=== PATIENT | female | born 1955 | race Caucasian/White ===

== ENCOUNTER 2021-08-10 18:55 | Inpatient (IN) | payer MEDICARE, BC ==
[~2021-08-10] VITALS: Ht 182.9 cm; Wt 74.8 kg
[2021-08-10 19:00] VITALS: BP 134/71
[2021-08-10 23:00] VITALS: BP 120/66
[2021-08-11] VITALS (15 sets, daily range): BP systolic 117–142; BP diastolic 66–81
[2021-08-11] MEDS ORDERED: MULT-735 PO (00:04)
[2021-08-11] MEDS ORDERED: TRAZ-118 PO (00:04)
[2021-08-11] MEDS ORDERED: FLUO20CA20 PO (00:04)
[2021-08-11] MEDS ORDERED: HYDR-2145 PO (00:04)
[2021-08-11] MEDS ORDERED: MECO10005 PO (00:04)
[2021-08-11] MEDS ORDERED: AMLO-187 PO (00:04)
[2021-08-11] MEDS ORDERED: LACT1CAP37 PO (00:04)
[2021-08-11] MEDS ORDERED: LOSA-73 PO (00:04)
[2021-08-11] MEDS ORDERED: OMEG1CAP6 PO (00:04)
[2021-08-11] MEDS ORDERED: CA/D1TAB PO (00:04)
[2021-08-11] MEDS: PIPERACILLIN/TAZOBACTAM 3.375 GM in IV NORMAL SALINE 50ML 50 ML IV SCH ×4 (00:53→17:46)
[2021-08-11] MEDS: IV NORMAL SALINE 1000ML BAG 1,000 ML IV SCH ×2 (00:53→12:15)
[2021-08-11] MEDS: fentaNYL PF VIAL 100 MCG/2 ML VIAL IVP PRN ×3 (03:29→17:44)
--- NOTE | 2021-08-11 07:02 | PDOC1 ---
History and Physical Date of Admission Date of Admission DATE: 08/11/21 TIME: 07:02 Source Source: Chart review, Patient History of Present Illness History of Present Illness Ms Pal is a 65yo F w/ PMHx HTN who presented to [facility] with labored emergency department complaining of right-sided lower abdominal pain. Pain started 2 weeks prior to presentation pain has been colicky comes and goes but her symptoms changed on 08/10/2021 is having a sharp pain with a bowel movement with 10 out of 10 in her right lower quadrant. She is felt more bloated and distended since then. She has had loose bowel movements. She also has had night sweats and subjective fevers has not checked her temperature. Denies chest pain and shortness of breath. Blood pressure on initial presentation 173/92 temp 98.4 F pulse 70 respirations 16/min SPO2 95% on room air initial labs NA 136, K3.8, BUN 7, CR 0.7, glucose 113, LFTs within normal laboratory results, WBC 11, Hb 16.5, platelets 373, urinalysis negative for nitrates negative for leukocyte esterase a COVID-19 PCR returned negative lactic acid 1.3 CT abdomen pelvis was performed in radiology read showed acute sigmoid diverticulitis with small pericolonic abscess no evidence of bowel perforation. An indeterminate 1.4 x 0.9 cm right lower lobe pulmonary nodule. 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 The ED contacted multiple hospitals [facility] had no beds available and was transferred to [facility] for further care. Past Medical History Cardiovascular: HTN Psych: Anxiety, Depression Social History Smoke: 1 pack per day ALCOHOL: social Drugs: Marijuana Current Medications Current Medications Current Medications Fentanyl Citrate (Fentanyl 2ml Vial) 50 mcg PRN Q3HRS PRN IVP SEVERE PAIN 7-10 Last administered on 08/11/21at 03:29; Start 08/10/21 at 22:45 Piperacillin Sod/ Tazobactam Sod 3.375 gm/Sodium Chloride 50 ml @ 100 mls/hr Q6HRS IV Last administered on 08/11/21at 06:10; Start 08/11/21 at 00:00 Sodium Chloride 1,000 ml @ 80 mls/hr [id number] IV Last administered on 08/11/21at 00:53; Start 08/10/21 at 22:45 Active Scripts Active Reported Fish Oil 1,000 Mg Capsule ([place]-3 Fatty Acids/Fish Oil) 1 Each Capsule 1 Each PO DAILY B12 Active (Mecobalamin) 1,000 Mcg Tab.chew 1,000 Mcg PO DAILY Probiotic (Lactobacillus Combo No.10) 1 Each Capsule 1 Each PO DAILY Caltrate 600+D Plus Tablet (Ca/D3/Mag#11/Zinc/Performance Improvement Consultant/Melecio/Bor) 1 Each Tablet 1 Each PO DAILY One-Daily Multi-Vitamin (Multivitamin) 1 Each Tablet 1 Each PO DAILY Trazodone Hcl 50 Mg Tablet 50 Mg PO HS Cozaar (Losartan Potassium) 50 Mg Tablet 50 Mg PO DAILY Hydrochlorothiazide Tablet (Hydrochlorothiazide) 25 Mg Tablet 12.5 Mg PO DAILY Fluoxetine Hcl 20 Mg Capsule 20 Mg PO DAILY Amlodipine Besylate 10 Mg Tablet 10 Mg PO DAILY Allergies Allergies: Coded Allergies: Sulfa (Sulfonamide Antibiotics) (Verified Allergy, Intermediate, 08/10/21) Vitals Vitals Vital Signs Date Time Temp Pulse Resp B/P (MAP) Pulse Ox O2 Delivery O2 Flow Rate FiO2 08/11/21 03:00 98.6 73 18 118/72 (87) 94 Room Air 98.[address] abdomen pelvis with contrast: Lower chest: Indeterminate 1.4 x 0.9 cm right lower lobe subpleural nodule bibasilar atelectasis no pleural or pericardial effusion. Abdomen: Liver: The liver enhances homogenously without focal mass Spleen: Normal spleen Pancreas: The pancreas enhances homogenously without focal mass ductal dilation or peripancreatic inflammatory changes Gallbladder and biliary: Normal gallbladder without radiopaque stones normal caliber biliary ducts. Adrenal glands: Normal adrenal glands Kidneys and ureters: With incidental left renal cyst measures up to 1.9 cm. 0.9 cm left inferior renal cyst demonstrates a thin internal septation with peripheral enhancement indicating a Bosniak type II F renal cyst no hydronephrosis no opaque urinary calculi GI tract: Thickening of the distal esophagus may relate to esophagitis. Stomach is decompressed and poorly evaluated. Small bowel: Of normal caliber. Marked inflammation about the proximal sigmoid colon, there are several prominent diverticula. There is marked bowel wall thickening in this region with adjacent free fluid and a 3.3 x 2.5 x 2.1 cm pericolonic fluid collection no evidence of perforation of the appendix is the visualized with certainty however there are no secondary signs of acute appendicitis. Vascular structures: Normal caliber abdominal aorta. Mild to moderate aortoiliac atherosclerosis. Celiac artery, SMA, bilateral renal arteries, and DAVID are patent. Portal mesenteric venous structures are patent. Lymph nodes: No lymphadenopathy in the abdomen or pelvis. Pelvis: Genitourinary system: Mild wall thickening of the left lateral bladder dome may be reactive given proximity to hypoexpansion. Sigmoid diverticulitis. Normal size uterus and ovaries. Skeletal structures and soft tissues: No acute fracture. No aggressive lytic or blastic osseous lesions. Moderate degenerative changes of both hips, left greater than right. Mild degenerative changes at the sacroiliac joints and pubic symphysis. Mild to moderate degenerative changes of the spine. Impression" 1.acute sigmoid diverticulitis with small pericolonic abscess no evidence of bowel perforation. 2. An indeterminate 1.4 x 0.9 cm right lower lobe pulmonary nodule. 3. 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 VTE Prophylaxis Ordered VTE Prophylaxis Devices: No VTE Pharmacological Prophylaxi: Yes Assessment/Plan Assessment/Plan A/P: Perforated diverticulitis - IV zosyn, general surgery, IR consulted, IV pain control. NPO Intractable abdominal pain - due to perforated diverticulitis. IV fentanyl. Consult general surgery Abdominal abscess - IR consulted for drain. Will cloud over images. Zosyn q6 hrs Smoker - counseled on cessation HTN - cont home meds. PRN hydralazine IV Depression - NPO, will cont meds when taking PO 1.4 x 0.9 cm right lower lobe pulmonary nodule - needs f/u in 6 months Bosniak type II F left inferior renal cyst - will need outpatient monitoring Hypokalemia - replace IV Moderate protein calorie malnutrition - due to diverticulitis FEN - NPO PPX - lovenox after procedure FULL CODE Dispo - inpatient Justifications for Admission Other Justification AD MEIER MD Aug 11, 2021 07:02
[2021-08-11] MEDS ORDERED: ONDANSETRON PF 4 MG/2 ML VIAL. IVP PRN (07:15)
[2021-08-11 07:18] LABS: BASO % 1 % (0-3); EOS # 0.1 x10^3/uL (0.0-0.7); EOS % 2 % (0-3); HEMATOCRIT 46.9 % (36.0-47.0); HEMOGLOBIN 15.9 g/dL (12.0-15.5); LYMPH # 1.3 x10^3/uL (1.0-4.8); LYMPH % 16 % (24-48); MEAN CORPUSCULAR HEMOGLOBIN 31 pg (25-35); MEAN CORPUSCULAR HGB CONC 34 g/dL (31-37); MEAN CORPUSCULAR VOLUME 91 fL (79-100); MONO # 0.6 x10^3/uL (0.0-1.1); MONO % 7 % (0-9); NEUT % 74 % (31-73); PLATELET COUNT 404 x10^3/uL (140-400); RED BLOOD COUNT 5.14 x10^6/uL (3.50-5.40); RED CELL DISTRIBUTION WIDTH 14.4 % (11.5-14.5); WHITE BLOOD COUNT 8.1 x10^3/uL (4.0-11.0)
[2021-08-11 07:22] LABS: ALBUMIN 2.6 g/dL (3.4-5.0); ALBUMIN/GLOBULIN RATIO 0.7 (1.0-1.7); CALCIUM 8.9 mg/dL (8.5-10.1); CREATININE 0.7 mg/dL (0.6-1.0); GFR 83.7; POTASSIUM 3.3 mmol/L (3.5-5.1); TOTAL BILIRUBIN 0.5 mg/dL (0.2-1.0); TOTAL PROTEIN 6.4 g/dL (6.4-8.2)
[2021-08-11] MEDS ORDERED: hydrALAZINE 20 MG/ML VIAL. IVP PRN (08:45)
[2021-08-11 10:26] LABS: PROTHROMBIN TIME PATIENT 13.6 SEC (11.7-14.0)
--- NOTE | 2021-08-11 10:53 | NUR ---
SW following. Discussed with RN, pt from home alone, room air, NPO. Surgery following. Imaging to determine if abscess needs draining. RN advised no SW needs at this time. SW will continue to follow.
[2021-08-11] MEDS ORDERED: LIDOCAINE WITH 8.4% SOD BICARB 3 ML DISP.SYRIN. ONE (13:41)
[2021-08-11] MEDS ORDERED: MIDAZOLAM HCL/PF 2 MG/2 ML VIAL. ONE (13:52)
[2021-08-11] MEDS ORDERED: fentaNYL PF VIAL 100 MCG/2 ML VIAL ONE (13:53)
[2021-08-11] MEDS ORDERED: fentaNYL PF VIAL 100 MCG/2 ML VIAL IV ONE (14:00)
[2021-08-11] MEDS ORDERED: LIDOCAINE WITH 8.4% SOD BICARB 3 ML DISP.SYRIN. IJ ONE (14:00)
[2021-08-11] MEDS ORDERED: MIDAZOLAM HCL/PF 2 MG/2 ML VIAL. IV ONE (14:00)
[2021-08-11] MEDS ORDERED: IOHEXOL 300 MG/ML 100ML VIAL. ONE (14:27)
--- NOTE | 2021-08-11 14:55 | PDOC ---
MODERATE SEDATION ASSESSMENT RISKS/ALTERNATIVES Risks/Alternatives Risks and alternatives of this type of sedation and procedure discussed with: RISK/ALTERNATIVES: Patient H & P ON CHART H & P H & P on chart and reviewed for co-morbid conditions and appropriate labs. H&P ON CHART: Yes STATUS PREG STATUS ASSESSED: Yes MEDS/ALLERGIES REVIEWED Meds/Allergies Reviewed Medications and Allergies including time and route of recently administered narcotics and sedatives. MEDS/ALLERGIES REVIEWED: Yes ASA RATING ASA RATING: II AIRWAY ASSESSMENT Airway Assessment Airway patency, oral function limitations, presence of caps, crowns, dentures, partials, and ability to extend neck assessed. AIRWAY ASSESSMENT: Yes MALLAMPATI SCORE MALLAMPATI SCORE: II PRE-SEDATION ASSESSMENT PRE-SEDATION ASSESSMENT: Yes LOU BANKS MD Aug 11, 2021 14:55
--- NOTE | 2021-08-11 14:56 | PDOC ---
BRIEF OPERATIVE NOTE Pre-Op Diagnosis diverticulitis Post-Op Diagnosis same Procedure Performed CT aspiration of pelvic abscess Surgeon Shonna EBL minimal Anesthesia Type: Conscious Sedation Specimens Obtained 3cc pus and blood Findings small sigmoid abscess improved from prior outside CT scan and now too small to accommodate a drain. Aspiration was performed yielding 3cc pus and resulting in complete involution of the residual abscess. Complications none LOU BANKS MD Aug 11, 2021 14:56
[2021-08-11] MEDS ORDERED: IOHEXOL 300 MG/ML 100ML VIAL. IJ ONE (15:00)
[2021-08-11] MEDS ORDERED: CONTRAST GIVEN. MC PRN (15:00)
--- NOTE | 2021-08-11 15:09 | RAD ---
Procedure: CT-guided pelvic abscess aspiration Clinical Indication: Adult female with pelvic abscess, sigmoid diverticulitis Sedation: Conscious sedation using a combination of Versed and fentanyl was provided for 10 minutes, including continuous monitoring of the patients heart rate, rhythm, blood pressure, oxygen saturation and level of arousability by a trained independent observer. CT Exposure: One or more of the following individualized dose reduction techniques were utilized for this examination: 1. Automated exposure control 2. Adjustment of the mA and/or kV according to antonieta ent size 3. Use of iterative reconstruction technique Contrast: None Sterility: The procedure was performed in its entirety using appropriate elements of sterile techniqu e. Consent: The procedure was explained in its entirety to the patient or the patients designated repres entative by a member of the treatment team, including a discussion of the risks, benefits and commonl y accepted alternatives to the procedure, as well as the expected consequences of not performing the procedure. Discussion of the risks included, but was not limited to, those that are most frequent an d those that are rare but possibly severe or life-threatening, as well as the possibility of unforese en complications. Time Out: Immediately prior to initiation a procedural pause was conducted in the presence of the mem bers of the treatment team to verify correct patient identity, correct procedure, correct side if vianey licable, correct patient position, availability of specialized equipment, review of patients allergie s, and assessment of current level of consciousness and arousability. Technique and Findings: Following informed consent, the patient was prepped and draped in the usual s terile fashion. Preliminary CT of the area of interest was performed. The previously seen abscess is less conspicuous today, consequently IV contrast was administered and scan was once again performed. There is a persistent small 2 cm abscess in the anterior wall of the sigmoid colon, which is smaller than seen on the previous outside study. 1 percent lidocaine was used to achieve local anesthesia. A small dermatotomy was made. An 18-gauge Seldinger needle was advanced into this fluid pocket and 3 cc of blood and pus was aspirated and sent for Charan biologic analysis. Follow-up CT scan demonstrate d complete involution of the abscess cavity. Hemostasis was readily achieved with manual compression following removal of the needle. Complications: No immediate Impression: 1. CT-guided aspiration of a pelvic abscess as described. This is improving compared to the prior sca n, and is presently too small to accommodate a drain. Aspiration resulted in complete involution. Electronically signed by: Frank Kilpatrick MD (08/11/2021 3:07 PM) [id number]
--- NOTE | 2021-08-11 16:47 | PDOC2 ---
CONSULT Date of Consult Date of Consult DATE: 08/11/21 TIME: 16:45 Reason for Consult Reason for Consult: Abdominal pain Referring Physician Referring Physician: Dianna Identification/Chief Complaint Chief Complaint Abdominal pain Source Source: Chart review, Patient History of Present Illness Reason for Visit: 65-year-old female had abdominal pain was evaluated [facility] urgent care CT scan was done which showed diverticulitis of the sigmoid colon with small abscess she was mated to the hospital IR drained abscess only 3 cc of purulent material. Currently she is resting comfortably in bed states she is feeling much better Past Medical History Cardiovascular: HTN Psych: Anxiety, Depression Social History 1 pack per day ALCOHOL: social Drugs: Marijuana Current Medications Current Medications Current Medications Fentanyl Citrate (Fentanyl 2ml Vial) 50 mcg PRN Q3HRS PRN IVP SEVERE PAIN 7-10 Last administered on 08/11/21at 12:11; Start 08/10/21 at 22:45 Piperacillin Sod/ Tazobactam Sod 3.375 gm/Sodium Chloride 50 ml @ 100 mls/hr Q6HRS IV Last administered on 08/11/21at 12:13; Start 08/11/21 at 00:00 Sodium Chloride 1,000 ml @ 80 mls/hr [id number] IV Last administered on 08/11/21at 12:15; Start 08/10/21 at 22:45 Ondansetron HCl (Zofran) 4 mg PRN Q4HRS PRN IVP NAUSEA/VOMITING; Start 08/11/21 at 07:15 Hydralazine HCl (Apresoline Inj) 10 mg PRN Q4HRS PRN IVP ELEVATED BP, SEE COMMENTS; Start 08/11/21 at 08:45 Lidocaine HCl (Buffered Lidocaine 1%) 3 ml STK-MED ONCE .ROUTE ; Start 08/11/21 at 13:41; Stop 08/11/21 at 13:41; Status DC Midazolam HCl (Versed) 2 mg STK-MED ONCE .ROUTE ; Start 08/11/21 at 13:52; Stop 08/11/21 at 13:53; Status DC Fentanyl Citrate (Fentanyl 2ml Vial) 100 mcg STK-MED ONCE .ROUTE ; Start 08/11/21 at 13:53; Stop 08/11/21 at 13:53; Status DC Lidocaine HCl (Buffered Lidocaine 1%) 3 ml 1X ONCE IJ Last administered on 08/11/21at 14:47; Start 08/11/21 at 14:00; Stop 08/11/21 at 14:04; Status DC Midazolam HCl (Versed) 2 mg 1X ONCE IV Last administered on 08/11/21at 14:46; Start 08/11/21 at 14:00; Stop 08/11/21 at 14:04; Status DC Fentanyl Citrate (Fentanyl 2ml Vial) 100 mcg 1X ONCE IV Last administered on 08/11/21at 14:46; Start 08/11/21 at 14:00; Stop 08/11/21 at 14:04; Status DC Potassium Chloride/Water 100 ml @ 100 mls/hr Q1H IV ; Start 08/11/21 at 14:00; Stop 08/11/21 at 15:59; Status DC Iohexol (Omnipaque 300 Mg/ml) 100 ml STK-MED ONCE .ROUTE ; Start 08/11/21 at 14:27; Stop 08/11/21 at 14:27; Status DC Iohexol (Omnipaque 300 Mg/ml) 100 ml 1X ONCE IJ Last administered on 08/11/21at 14:55; Start 08/11/21 at 15:00; Stop 08/11/21 at 15:01; Status DC Info (CONTRAST GIVEN -- Rx MONITORING) 1 each PRN DAILY PRN MC SEE COMMENTS; Start 08/11/21 at 15:00; Stop 08/13/21 at 14:59 Active Scripts Active Reported Fish Oil 1,000 Mg Capsule ([place]-3 Fatty Acids/Fish Oil) 1 Each Capsule 1 Each PO DAILY B12 Active (Mecobalamin) 1,000 Mcg Tab.chew 1,000 Mcg PO DAILY Probiotic (Lactobacillus Combo No.10) 1 Each Capsule 1 Each PO DAILY Caltrate 600+D Plus Tablet (Ca/D3/Mag#11/Zinc/Regional Sales Leader/Melecio/Bor) 1 Each Tablet 1 Each PO DAILY One-Daily Multi-Vitamin (Multivitamin) 1 Each Tablet 1 Each PO DAILY Trazodone Hcl 50 Mg Tablet 50 Mg PO HS Cozaar (Losartan Potassium) 50 Mg Tablet 50 Mg PO DAILY Hydrochlorothiazide Tablet (Hydrochlorothiazide) 25 Mg Tablet 12.5 Mg PO DAILY Fluoxetine Hcl 20 Mg Capsule 20 Mg PO DAILY Amlodipine Besylate 10 Mg Tablet 10 Mg PO DAILY Allergies Allergies: Coded Allergies: Sulfa (Sulfonamide Antibiotics) (Verified Allergy, Intermediate, 08/10/21) ROS Gastrointestinal: Yes Abdominal Pain Physical Exam General: Alert, Oriented X3, Cooperative, mild distress HEENT: Atraumatic, EOMI Lungs: Clear to auscultation, Normal air movement Heart: Regular rate, No murmurs Abdomen: Normal bowel sounds, Soft, Other (Tender to palpation left lower quadrant) Extremities: No edema Skin: No significant lesion Neuro: Normal speech Psych/Mental Status: Mental status NL Vitals VITALS Vital Signs Date Time Temp Pulse Resp B/P (MAP) Pulse Ox O2 Delivery O2 Flow Rate FiO2 08/11/21 16:31 132/81 (98) Room Air 08/11/21 16:00 98.0 78 18 97 98.0 08/11/21 14:56 2.0 Labs Labs Laboratory Tests Test 08/11/21 06:05 08/11/21 09:50 White Blood Count 8.1 x10^3/uL (4.0-11.0) Red Blood Count 5.14 x10^6/uL (3.50-5.40) Hemoglobin 15.9 g/dL (12.0-15.5) Hematocrit 46.9 % (36.0-47.0) Mean Corpuscular Volume 91 fL (79-100) Mean Corpuscular Hemoglobin 31 pg (25-35) Mean Corpuscular Hemoglobin Concent 34 g/dL (31-37) Red Cell Distribution Width 14.4 % (11.5-14.5) Platelet Count 404 x10^3/uL (140-400) Neutrophils (%) (Auto) 74 % (31-73) Lymphocytes (%) (Auto) 16 % (24-48) Monocytes (%) (Auto) 7 % (0-9) Eosinophils (%) (Auto) 2 % (0-3) Basophils (%) (Auto) 1 % (0-3) Neutrophils # (Auto) 6.0 x10^3/uL (1.8-7.7) Lymphocytes # (Auto) 1.3 x10^3/uL (1.0-4.8) Monocytes # (Auto) 0.6 x10^3/uL (0.0-1.1) Eosinophils # (Auto) 0.1 x10^3/uL (0.0-0.7) Basophils # (Auto) 0.0 x10^3/uL (0.0-0.2) Sodium Level 141 mmol/L (136-145) Potassium Level 3.3 mmol/L (3.5-5.1) Chloride Level 105 mmol/L (98-107) Carbon Dioxide Level 31 mmol/L (21-32) Anion Gap 5 (6-14) Blood Urea Nitrogen 7 mg/dL (7-20) Creatinine 0.7 mg/dL (0.6-1.0) Estimated GFR (Cockcroft-Gault) 83.7 BUN/Creatinine Ratio 10 (6-20) Glucose Level 81 mg/dL (70-99) Calcium Level 8.9 mg/dL (8.5-10.1) Magnesium Level 2.1 mg/dL (1.8-2.4) Total Bilirubin 0.5 mg/dL (0.2-1.0) Aspartate Amino Transf (AST/SGOT) 11 U/L (15-37) Alanine Aminotransferase (ALT/SGPT) 20 U/L (14-59) Alkaline Phosphatase 63 U/L (46-116) Total Protein 6.4 g/dL (6.4-8.2) Albumin 2.6 g/dL (3.4-5.0) Albumin/Globulin Ratio 0.7 (1.0-1.7) Prothrombin Time 13.6 SEC (11.7-14.0) Prothromb Time International Ratio 1.0 (0.8-1.1) Laboratory Tests Test 08/11/21 06:05 08/11/21 09:50 White Blood Count 8.1 x10^3/uL (4.0-11.0) Red Blood Count 5.14 x10^6/uL (3.50-5.40) Hemoglobin 15.9 g/dL (12.0-15.5) Hematocrit 46.9 % (36.0-47.0) Mean Corpuscular Volume 91 fL (79-100) Mean Corpuscular Hemoglobin 31 pg (25-35) Mean Corpuscular Hemoglobin Concent 34 g/dL (31-37) Red Cell Distribution Width 14.4 % (11.5-14.5) Platelet Count 404 x10^3/uL (140-400) Neutrophils (%) (Auto) 74 % (31-73) Lymphocytes (%) (Auto) 16 % (24-48) Monocytes (%) (Auto) 7 % (0-9) Eosinophils (%) (Auto) 2 % (0-3) Basophils (%) (Auto) 1 % (0-3) Neutrophils # (Auto) 6.0 x10^3/uL (1.8-7.7) Lymphocytes # (Auto) 1.3 x10^3/uL (1.0-4.8) Monocytes # (Auto) 0.6 x10^3/uL (0.0-1.1) Eosinophils # (Auto) 0.1 x10^3/uL (0.0-0.7) Basophils # (Auto) 0.0 x10^3/uL (0.0-0.2) Sodium Level 141 mmol/L (136-145) Potassium Level 3.3 mmol/L (3.5-5.1) Chloride Level 105 mmol/L (98-107) Carbon Dioxide Level 31 mmol/L (21-32) Anion Gap 5 (6-14) Blood Urea Nitrogen 7 mg/dL (7-20) Creatinine 0.7 mg/dL (0.6-1.0) Estimated GFR (Cockcroft-Gault) 83.7 BUN/Creatinine Ratio 10 (6-20) Glucose Level 81 mg/dL (70-99) Calcium Level 8.9 mg/dL (8.5-10.1) Magnesium Level 2.1 mg/dL (1.8-2.4) Total Bilirubin 0.5 mg/dL (0.2-1.0) Aspartate Amino Transf (AST/SGOT) 11 U/L (15-37) Alanine Aminotransferase (ALT/SGPT) 20 U/L (14-59) Alkaline Phosphatase 63 U/L (46-116) Total Protein 6.4 g/dL (6.4-8.2) Albumin 2.6 g/dL (3.4-5.0) Albumin/Globulin Ratio 0.7 (1.0-1.7) Prothrombin Time 13.6 SEC (11.7-14.0) Prothromb Time International Ratio 1.0 (0.8-1.1) Assessment/Plan Assessment/Plan Diverticulitis status post IR drainage of abscess Agree with bowel rest IV antibiotics hydration We will monitor BHAVIK DA SILVA MD Aug 11, 2021 16:47
[2021-08-11] MEDS: POTASSIUM CHLORIDE 10MEQ 100 ML IV SCH ×2 (17:39→19:00)
[2021-08-11] MEDS ORDERED: ZOLPIDEM 5 MG TABLET. PO PRN (20:00)
[2021-08-11] MEDS ORDERED: FAMOTIDINE 20 MG TABLET. PO PRN (20:00)
[2021-08-11] MEDS ORDERED: diphenhydrAMINE 50 MG/ML VIAL IVP PRN (20:15)
[2021-08-11] MEDS: FAMOTIDINE 20 MG/2 ML VIAL IVP PRN (21:29)
[2021-08-12] MEDS: PIPERACILLIN/TAZOBACTAM 3.375 GM in IV NORMAL SALINE 50ML 50 ML IV SCH ×4 (00:27→18:56)
[2021-08-12] MEDS: fentaNYL PF VIAL 100 MCG/2 ML VIAL IVP PRN (00:27)
[2021-08-12 03:00] VITALS: BP 119/69
[2021-08-12 07:10] VITALS: BP 136/76
[2021-08-12 07:16] LABS: BASO % 1 % (0-3); EOS # 0.1 x10^3/uL (0.0-0.7); EOS % 2 % (0-3); HEMATOCRIT 45.9 % (36.0-47.0); HEMOGLOBIN 15.3 g/dL (12.0-15.5); LYMPH # 1.1 x10^3/uL (1.0-4.8); LYMPH % 15 % (24-48); MEAN CORPUSCULAR HEMOGLOBIN 31 pg (25-35); MEAN CORPUSCULAR HGB CONC 33 g/dL (31-37); MEAN CORPUSCULAR VOLUME 92 fL (79-100); MONO # 0.4 x10^3/uL (0.0-1.1); MONO % 5 % (0-9); NEUT # 5.6 x10^3/uL (1.8-7.7); NEUT % 77 % (31-73); PLATELET COUNT 410 x10^3/uL (140-400); RED BLOOD COUNT 4.99 x10^6/uL (3.50-5.40); RED CELL DISTRIBUTION WIDTH 13.9 % (11.5-14.5); WHITE BLOOD COUNT 7.3 x10^3/uL (4.0-11.0)
[2021-08-12 07:50] LABS: ALBUMIN 2.6 g/dL (3.4-5.0); ALBUMIN/GLOBULIN RATIO 0.7 (1.0-1.7); CALCIUM 8.9 mg/dL (8.5-10.1); CREATININE 0.7 mg/dL (0.6-1.0); GFR 83.7; POTASSIUM 3.4 mmol/L (3.5-5.1); TOTAL BILIRUBIN 0.5 mg/dL (0.2-1.0); TOTAL PROTEIN 6.4 g/dL (6.4-8.2)
--- NOTE | 2021-08-12 08:16 | PDOC ---
[employer] PROGRESS NOTE Date of Service DOS: DATE: 08/12/21 TIME: 08:02 Chief Complaint Chief Complaint A/P: Perforated diverticulitis - IV zosyn, general surgery, IR consulted, IV pain control. NPO Intractable abdominal pain - due to perforated diverticulitis. IV fentanyl. Consult general surgery Abdominal abscess - IR consulted for drain. Will cloud over images. Zosyn q6 hrs Smoker - counseled on cessation HTN - cont home meds. PRN hydralazine IV Depression - NPO, will cont meds when taking PO 1.4 x 0.9 cm right lower lobe pulmonary nodule - needs f/u in 6 months Bosniak type II F left inferior renal cyst - will need outpatient monitoring Hypokalemia - replace IV Moderate protein calorie malnutrition - due to diverticulitis FEN - Clears PPX - lovenox after procedure FULL CODE Dispo - inpatient History of Present Illness History of Present Illness Ms Pal is a 65yo F w/ PMHx HTN who presented to [facility] with labored emergency department complaining of right-sided lower abdominal pain. Pain started 2 weeks prior to presentation pain has been colicky comes and goes but her symptoms changed on 08/10/2021 is having a sharp pain with a bowel movement with 10 out of 10 in her right lower quadrant. She is felt more bloated and distended since then. She has had loose bowel movements. She also has had night sweats and subjective fevers has not checked her temperature. Denies chest pain and shortness of breath. Blood pressure on initial presentation 173/92 temp 98.4 F pulse 70 respirations 16/min SPO2 95% on room air initial labs NA 136, K3.8, BUN 7, CR 0.7, glucose 113, LFTs within normal laboratory results, WBC 11, Hb 16.5, platelets 373, urinalysis negative for nitrates negative for leukocyte esterase a COVID-19 PCR returned negative lactic acid 1.3 CT abdomen pelvis was performed in radiology read showed acute sigmoid diverticulitis with small pericolonic abscess no evidence of bowel perforation. An indeterminate 1.4 x 0.9 cm right lower lobe pulmonary nodule. 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 The ED contacted multiple hospitals [facility] had no beds available and was transferred to [facility] for further care. 08/11: To IR for abscess drainage with 3 cc of purulent material removed and no need for placement of a drain after. Afebrile overnight. Potassium still low at 3.4 despite replacement. Her suprapubic and right lower quadrant pain are much improved but she still has left upper quadrant pain she thinks may be more related to her ribs. Will try Lidoderm patch and topical Voltaren. Diet was advanced to clears per general surgery. Vitals/I&O Vitals/I&O: Vital Signs Date Time Temp Pulse Resp B/P (MAP) Pulse Ox O2 Delivery O2 Flow Rate FiO2 08/12/21 07:10 98.6 82 16 136/76 (96) 94 Room Air 98.6 08/11/21 14:56 2.0 I & O 08/11/21 08/11/21 08/12/21 15:00 23:00 07:00 Intake Total 0 ml 0 ml Balance 0 ml 0 ml Physical Exam General: Alert, Oriented X3, Cooperative, mild distress Heart: Regular rate, No murmurs Abdomen: Normal bowel sounds, Soft, Other (Tender to palpation left lower quadrant) Extremities: No edema Skin: No significant lesion Labs Labs: Laboratory Tests Test 08/11/21 09:50 08/12/21 06:40 Prothrombin Time 13.6 SEC (11.7-14.0) Prothromb Time International Ratio 1.0 (0.8-1.1) White Blood Count 7.3 x10^3/uL (4.0-11.0) Red Blood Count 4.99 x10^6/uL (3.50-5.40) Hemoglobin 15.3 g/dL (12.0-15.5) Hematocrit 45.9 % (36.0-47.0) Mean Corpuscular Volume 92 fL (79-100) Mean Corpuscular Hemoglobin 31 pg (25-35) Mean Corpuscular Hemoglobin Concent 33 g/dL (31-37) Red Cell Distribution Width 13.9 % (11.5-14.5) Platelet Count 410 x10^3/uL (140-400) Neutrophils (%) (Auto) 77 % (31-73) Lymphocytes (%) (Auto) 15 % (24-48) Monocytes (%) (Auto) 5 % (0-9) Eosinophils (%) (Auto) 2 % (0-3) Basophils (%) (Auto) 1 % (0-3) Neutrophils # (Auto) 5.6 x10^3/uL (1.8-7.7) Lymphocytes # (Auto) 1.1 x10^3/uL (1.0-4.8) Monocytes # (Auto) 0.4 x10^3/uL (0.0-1.1) Eosinophils # (Auto) 0.1 x10^3/uL (0.0-0.7) Basophils # (Auto) 0.0 x10^3/uL (0.0-0.2) Sodium Level 143 mmol/L (136-145) Potassium Level 3.4 mmol/L (3.5-5.1) Chloride Level 105 mmol/L (98-107) Carbon Dioxide Level 19 mmol/L (21-32) Anion Gap 19 (6-14) Blood Urea Nitrogen 11 mg/dL (7-20) Creatinine 0.7 mg/dL (0.6-1.0) Estimated GFR (Cockcroft-Gault) 83.7 BUN/Creatinine Ratio 16 (6-20) Glucose Level 68 mg/dL (70-99) Calcium Level 8.9 mg/dL (8.5-10.1) Total Bilirubin 0.5 mg/dL (0.2-1.0) Aspartate Amino Transf (AST/SGOT) 17 U/L (15-37) Alanine Aminotransferase (ALT/SGPT) 15 U/L (14-59) Alkaline Phosphatase 62 U/L (46-116) Total Protein 6.4 g/dL (6.4-8.2) Albumin 2.6 g/dL (3.4-5.0) Albumin/Globulin Ratio 0.7 (1.0-1.7) Comment Review of Relevant I have reviewed the following items mann (where applicable) has been applied. Medications: Current Medications Medications (Trade) Dose Ordered Sig/Vince Route PRN Reason Start Time Stop Time Status Last Admin Dose Admin Lidocaine HCl (Buffered Lidocaine 1%) 3 ml 1X ONCE IJ 08/11/21 14:00 08/11/21 14:04 DC 08/11/21 14:47 Midazolam HCl (Versed) 2 mg 1X ONCE IV 08/11/21 14:00 08/11/21 14:04 DC 08/11/21 14:46 Fentanyl Citrate (Fentanyl 2ml Vial) 100 mcg 1X ONCE IV 08/11/21 14:00 08/11/21 14:04 DC 08/11/21 14:46 Potassium Chloride/Water 100 ml @ 100 mls/hr Q1H IV 08/11/21 14:00 08/11/21 15:59 DC 08/11/21 19:00 Iohexol (Omnipaque 300 Mg/ml) 100 ml 1X ONCE IJ 08/11/21 15:00 08/11/21 15:01 DC 08/11/21 14:55 Famotidine (Pepcid Vial) 20 mg PRN BID PRN IVP HEARTBURN / GAS 08/11/21 20:00 08/11/21 21:29 Justifications for Admission Other Justification AD MEIER MD Aug 12, 2021 08:16
--- NOTE | 2021-08-12 08:48 | PDOC ---
SURGICAL PROGRESS NOTE DATE: 08/12/21 TIME: 08:47 Subjective Patient doing quite well minimal pain has had a bowel movement passing flatus Vital Signs Vital Signs Date Time Temp Pulse Resp B/P (MAP) Pulse Ox O2 Delivery O2 Flow Rate FiO2 08/12/21 07:10 98.6 82 16 136/76 (96) 94 Room Air 98.6 08/11/21 14:56 2.0 I&O Intake and Output 08/12/21 07:00 Intake Total 0 ml Balance 0 ml Intake Oral 0 ml # Voids 1 PATIENT HAS A COLLINS: No General: Alert, Oriented X3, Cooperative, mild distress Abdomen: Normal bowel sounds, Soft, Other (Mildly tender to palpation left lower quadrant) Labs Laboratory Tests Test 08/11/21 06:05 08/11/21 09:50 08/12/21 06:40 White Blood Count 8.1 x10^3/uL (4.0-11.0) 7.3 x10^3/uL (4.0-11.0) Red Blood Count 5.14 x10^6/uL (3.50-5.40) 4.99 x10^6/uL (3.50-5.40) Hemoglobin 15.9 g/dL (12.0-15.5) 15.3 g/dL (12.0-15.5) Hematocrit 46.9 % (36.0-47.0) 45.9 % (36.0-47.0) Mean Corpuscular Volume 91 fL (79-100) 92 fL (79-100) Mean Corpuscular Hemoglobin 31 pg (25-35) 31 pg (25-35) Mean Corpuscular Hemoglobin Concent 34 g/dL (31-37) 33 g/dL (31-37) Red Cell Distribution Width 14.4 % (11.5-14.5) 13.9 % (11.5-14.5) Platelet Count 404 x10^3/uL (140-400) 410 x10^3/uL (140-400) Neutrophils (%) (Auto) 74 % (31-73) 77 % (31-73) Lymphocytes (%) (Auto) 16 % (24-48) 15 % (24-48) Monocytes (%) (Auto) 7 % (0-9) 5 % (0-9) Eosinophils (%) (Auto) 2 % (0-3) 2 % (0-3) Basophils (%) (Auto) 1 % (0-3) 1 % (0-3) Neutrophils # (Auto) 6.0 x10^3/uL (1.8-7.7) 5.6 x10^3/uL (1.8-7.7) Lymphocytes # (Auto) 1.3 x10^3/uL (1.0-4.8) 1.1 x10^3/uL (1.0-4.8) Monocytes # (Auto) 0.6 x10^3/uL (0.0-1.1) 0.4 x10^3/uL (0.0-1.1) Eosinophils # (Auto) 0.1 x10^3/uL (0.0-0.7) 0.1 x10^3/uL (0.0-0.7) Basophils # (Auto) 0.0 x10^3/uL (0.0-0.2) 0.0 x10^3/uL (0.0-0.2) Sodium Level 141 mmol/L (136-145) 143 mmol/L (136-145) Potassium Level 3.3 mmol/L (3.5-5.1) 3.4 mmol/L (3.5-5.1) Chloride Level 105 mmol/L (98-107) 105 mmol/L (98-107) Carbon Dioxide Level 31 mmol/L (21-32) 19 mmol/L (21-32) Anion Gap 5 (6-14) 19 (6-14) Blood Urea Nitrogen 7 mg/dL (7-20) 11 mg/dL (7-20) Creatinine 0.7 mg/dL (0.6-1.0) 0.7 mg/dL (0.6-1.0) Estimated GFR (Cockcroft-Gault) 83.7 83.7 BUN/Creatinine Ratio 10 (6-20) 16 (6-20) Glucose Level 81 mg/dL (70-99) 68 mg/dL (70-99) Calcium Level 8.9 mg/dL (8.5-10.1) 8.9 mg/dL (8.5-10.1) Magnesium Level 2.1 mg/dL (1.8-2.4) Total Bilirubin 0.5 mg/dL (0.2-1.0) 0.5 mg/dL (0.2-1.0) Aspartate Amino Transf (AST/SGOT) 11 U/L (15-37) 17 U/L (15-37) Alanine Aminotransferase (ALT/SGPT) 20 U/L (14-59) 15 U/L (14-59) Alkaline Phosphatase 63 U/L (46-116) 62 U/L (46-116) Total Protein 6.4 g/dL (6.4-8.2) 6.4 g/dL (6.4-8.2) Albumin 2.6 g/dL (3.4-5.0) 2.6 g/dL (3.4-5.0) Albumin/Globulin Ratio 0.7 (1.0-1.7) 0.7 (1.0-1.7) Prothrombin Time 13.6 SEC (11.7-14.0) Prothromb Time International Ratio 1.0 (0.8-1.1) Laboratory Tests Test 08/11/21 09:50 08/12/21 06:40 Prothrombin Time 13.6 SEC (11.7-14.0) Prothromb Time International Ratio 1.0 (0.8-1.1) White Blood Count 7.3 x10^3/uL (4.0-11.0) Red Blood Count 4.99 x10^6/uL (3.50-5.40) Hemoglobin 15.3 g/dL (12.0-15.5) Hematocrit 45.9 % (36.0-47.0) Mean Corpuscular Volume 92 fL (79-100) Mean Corpuscular Hemoglobin 31 pg (25-35) Mean Corpuscular Hemoglobin Concent 33 g/dL (31-37) Red Cell Distribution Width 13.9 % (11.5-14.5) Platelet Count 410 x10^3/uL (140-400) Neutrophils (%) (Auto) 77 % (31-73) Lymphocytes (%) (Auto) 15 % (24-48) Monocytes (%) (Auto) 5 % (0-9) Eosinophils (%) (Auto) 2 % (0-3) Basophils (%) (Auto) 1 % (0-3) Neutrophils # (Auto) 5.6 x10^3/uL (1.8-7.7) Lymphocytes # (Auto) 1.1 x10^3/uL (1.0-4.8) Monocytes # (Auto) 0.4 x10^3/uL (0.0-1.1) Eosinophils # (Auto) 0.1 x10^3/uL (0.0-0.7) Basophils # (Auto) 0.0 x10^3/uL (0.0-0.2) Sodium Level 143 mmol/L (136-145) Potassium Level 3.4 mmol/L (3.5-5.1) Chloride Level 105 mmol/L (98-107) Carbon Dioxide Level 19 mmol/L (21-32) Anion Gap 19 (6-14) Blood Urea Nitrogen 11 mg/dL (7-20) Creatinine 0.7 mg/dL (0.6-1.0) Estimated GFR (Cockcroft-Gault) 83.7 BUN/Creatinine Ratio 16 (6-20) Glucose Level 68 mg/dL (70-99) Calcium Level 8.9 mg/dL (8.5-10.1) Total Bilirubin 0.5 mg/dL (0.2-1.0) Aspartate Amino Transf (AST/SGOT) 17 U/L (15-37) Alanine Aminotransferase (ALT/SGPT) 15 U/L (14-59) Alkaline Phosphatase 62 U/L (46-116) Total Protein 6.4 g/dL (6.4-8.2) Albumin 2.6 g/dL (3.4-5.0) Albumin/Globulin Ratio 0.7 (1.0-1.7) Assessment/Plan Diverticulitis afebrile white count normal, continue IV antibiotics Advance diet to clear liquids Justicifation of Admission Dx: Justifications for Admission: Justification of Admission Dx: N/A BHAVIK DA SILVA MD Aug 12, 2021 08:48
[2021-08-12] MEDS ORDERED: POTASSIUM CL 40MEQ D5-0.45NACL 1,000 ML IV SCH (09:00)
[2021-08-12] MEDS: PANTOPRAZOLE IV PUSH 40 MG VIAL. IVP SCH (09:20)
[2021-08-12] MEDS: FAMOTIDINE 20 MG/2 ML VIAL IVP PRN (09:20)
[2021-08-12 11:12] VITALS: BP 135/76
[2021-08-12] MEDS: ACETAMINOPHEN 325 MG TABLET. PO PRN ×2 (12:46→19:38)
[2021-08-12] MEDS: LIDOCAINE (700MG/PATCH) PATCH. TD SCH (13:21)
[2021-08-12] MEDS: OMEGA-3 FATTY ACIDS/FISH OIL 1,000 MG CAPSULE. PO SCH (14:00)
[2021-08-12] MEDS: CALCIUM CARB/VIT D3 500/200 TABLET. PO SCH (14:48)
[2021-08-12] MEDS: CYANOCOBALAMIN (VITAMIN B-12) 1,000 MCG TABLET. PO SCH (14:48)
[2021-08-12] MEDS: MULTIVITAMIN with MINERAL TABLET. PO SCH (14:48)
[2021-08-12] MEDS: LACTOBACILLUS RHAMNOSUS GG 1 CAPSULE. PO SCH (14:48)
[2021-08-12] MEDS: FLUoxetine HCL 20 MG CAPSULE PO SCH (14:48)
[2021-08-12] MEDS: LOSARTAN POTASSIUM 50 MG TABLET. PO SCH (14:48)
[2021-08-12] MEDS: DICLOFENAC SODIUM 1% TOPICAL GEL 100GM TUBE. TP SCH ×2 (14:50→20:52)
[2021-08-12 15:17] VITALS: BP 157/76
[2021-08-12 19:00] VITALS: BP 141/80
[2021-08-12] MEDS: traZODone 50 MG TABLET. PO SCH (20:51)
[2021-08-12] MEDS: PATCH REMOVAL. MC SCH (21:00)
[2021-08-12 23:00] VITALS: BP 162/92
[2021-08-13] MEDS: PIPERACILLIN/TAZOBACTAM 3.375 GM in IV NORMAL SALINE 50ML 50 ML IV SCH ×3 (00:03→11:36)
[2021-08-13 02:59] VITALS: BP 136/75
[2021-08-13] MEDS: PANTOPRAZOLE IV PUSH 40 MG VIAL. IVP SCH (06:01)
[2021-08-13] MEDS: ACETAMINOPHEN 325 MG TABLET. PO PRN (06:11)
[2021-08-13 07:00] VITALS: BP 146/90
--- NOTE | 2021-08-13 08:34 | PDOC ---
[employer] PROGRESS NOTE Date of Service DOS: DATE: 08/13/21 TIME: 08:34 Chief Complaint Chief Complaint A/P: Perforated diverticulitis - IV zosyn, general surgery, IR consulted, IV pain control. f/u cultures Intractable abdominal pain - due to perforated diverticulitis. IV fentanyl. Consult general surgery Abdominal abscess - IR consulted for drain. Zosyn q6 hrs Smoker - counseled on cessation HTN - cont home meds. 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 Pain started 2 weeks prior to presentation pain has been colicky comes and goes but her symptoms changed on 08/10/2021 is having a sharp pain with a bowel movement with 10 out of 10 in her right lower quadrant. She is felt more bloated and distended since then. She has had loose bowel movements. She also has had night sweats and subjective fevers has not checked her temperature. Denies chest pain and shortness of breath. Blood pressure on initial presentation 173/92 temp 98.4 F pulse 70 respirations 16/min SPO2 95% on room air initial labs NA 136, K3.8, BUN 7, CR 0.7, glucose 113, LFTs within normal laboratory results, WBC 11, Hb 16.5, platelets 373, urinalysis negative for nitrates negative for leukocyte esterase a COVID-19 PCR returned negative lactic acid 1.3 CT abdomen pelvis was performed in radiology read showed acute sigmoid diverticulitis with small pericolonic abscess no evidence of bowel perforation. An indeterminate 1.4 x 0.9 cm right lower lobe pulmonary nodule. 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 The ED contacted multiple hospitals [facility] had no beds available and was transferred to [facility] for further care. 08/11: To IR for abscess drainage with 3 cc of purulent material removed and no need for placement of a drain after. 08/12: Afebrile overnight. Potassium still low at 3.4 despite replacement. Her suprapubic and right lower quadrant pain are much improved but she still has left upper quadrant pain she thinks may be more related to her ribs. Will try Lidoderm patch and topical Voltaren. Diet was advanced Afebrile overnight. Preliminary Gram stain with GNR and GPC, K3. Suprapubic and right lower quadrant pain improved Lidoderm topical Voltaren not improving left upper quadrant lower rib pain. Tolerating clears well. plan: F/u cultures Repeat CT follow K, hold HCTZ Vitals/I&O Vitals/I&O: Vital Signs Date Time Temp Pulse Resp B/P (MAP) Pulse Ox O2 Delivery O2 Flow Rate FiO2 08/13/21 07:00 98.0 73 18 146/90 (108) 96 Room Air 98.0 I & O 08/12/21 08/12/21 08/13/21 15:00 23:00 07:00 Intake Total 420 ml 360 ml Balance 420 ml 360 ml Physical Exam General: Alert, Oriented X3, Cooperative, mild distress Heart: Regular rate, No murmurs Abdomen: Normal bowel sounds, Soft, Other (Mildly tender to palpation left lower quadrant) Extremities: No edema Skin: No significant lesion Comment Review of Relevant I have reviewed the following items mann (where applicable) has been applied. Medications: Current Medications Medications (Trade) Dose Ordered Sig/Vince Route PRN Reason Start Time Stop Time Status Last Admin Dose Admin Potassium Chloride/Dextrose/ Sod Cl 1,000 ml @ 80 mls/hr [id number] IV 08/12/21 09:00 08/12/21 21:29 DC 08/12/21 09:32 Acetaminophen (Tylenol) 650 mg PRN Q6HRS PRN PO MILD PAIN / TEMP > 100.3'F 08/12/21 12:45 08/13/21 06:11 Lidocaine (Lidoderm) 1 patch DAILY TD 08/12/21 13:00 08/12/21 13:21 Miscellaneous (Lidoderm Patch Removal) 1 ea QHS MC 08/12/21 21:00 08/12/21 21:00 Diclofenac Sodium (Voltaren) 1 vianey BID TP 08/12/21 13:00 08/12/21 20:52 Amlodipine Besylate (Norvasc) 10 mg DAILY PO 08/12/21 14:00 08/12/21 14:49 Fluoxetine HCl (PROzac) 20 mg DAILY PO 08/12/21 14:00 08/12/21 14:48 Losartan Potassium (Cozaar) 50 mg DAILY PO 08/12/21 14:00 08/12/21 14:48 Trazodone HCl (Desyrel) 50 mg HS PO 08/12/21 21:00 08/12/21 20:51 Calcium/Vitamin D (Oscal D 500mg/ 200uts) 1 tab DAILY PO 08/12/21 14:00 08/12/21 14:48 Lactobacillus Rhamnosus (Culturelle) 1 cap DAILY PO 08/12/21 14:00 08/12/21 14:48 Cyanocobalamin (Vitamin B-12) 1,000 mcg DAILY PO 08/12/21 14:00 08/12/21 14:48 Multivitamins (Thera M Plus) 1 tab DAILY PO 08/12/21 14:00 08/12/21 14:48 Justifications for Admission Other Justification AD MEIER MD Aug 13, 2021 08:34
--- NOTE | 2021-08-13 09:00 | PDOC ---
SURGICAL PROGRESS NOTE DATE: 08/13/21 TIME: 08:59 Subjective Patient doing quite well tolerating clear liquid diet minimal lower left quadrant pain. Very anxious to be going home Vital Signs Vital Signs Date Time Temp Pulse Resp B/P (MAP) Pulse Ox O2 Delivery O2 Flow Rate FiO2 08/13/21 07:00 98.0 73 18 146/90 (108) 96 Room Air 98.0 I&O Intake and Output 08/13/21 07:00 Intake Total 780 ml Balance 780 ml Intake Oral 780 ml # Voids 2 # Bowel Movements 1 PATIENT HAS A COLLINS: No General: Alert, Oriented X3, Cooperative, mild distress Abdomen: Normal bowel sounds, Soft, Other (Mildly tender to palpation left lower quadrant) Labs Laboratory Tests Test 08/11/21 09:50 08/12/21 06:40 Prothrombin Time 13.6 SEC (11.7-14.0) Prothromb Time International Ratio 1.0 (0.8-1.1) White Blood Count 7.3 x10^3/uL (4.0-11.0) Red Blood Count 4.99 x10^6/uL (3.50-5.40) Hemoglobin 15.3 g/dL (12.0-15.5) Hematocrit 45.9 % (36.0-47.0) Mean Corpuscular Volume 92 fL (79-100) Mean Corpuscular Hemoglobin 31 pg (25-35) Mean Corpuscular Hemoglobin Concent 33 g/dL (31-37) Red Cell Distribution Width 13.9 % (11.5-14.5) Platelet Count 410 x10^3/uL (140-400) Neutrophils (%) (Auto) 77 % (31-73) Lymphocytes (%) (Auto) 15 % (24-48) Monocytes (%) (Auto) 5 % (0-9) Eosinophils (%) (Auto) 2 % (0-3) Basophils (%) (Auto) 1 % (0-3) Neutrophils # (Auto) 5.6 x10^3/uL (1.8-7.7) Lymphocytes # (Auto) 1.1 x10^3/uL (1.0-4.8) Monocytes # (Auto) 0.4 x10^3/uL (0.0-1.1) Eosinophils # (Auto) 0.1 x10^3/uL (0.0-0.7) Basophils # (Auto) 0.0 x10^3/uL (0.0-0.2) Sodium Level 143 mmol/L (136-145) Potassium Level 3.4 mmol/L (3.5-5.1) Chloride Level 105 mmol/L (98-107) Carbon Dioxide Level 19 mmol/L (21-32) Anion Gap 19 (6-14) Blood Urea Nitrogen 11 mg/dL (7-20) Creatinine 0.7 mg/dL (0.6-1.0) Estimated GFR (Cockcroft-Gault) 83.7 BUN/Creatinine Ratio 16 (6-20) Glucose Level 68 mg/dL (70-99) Calcium Level 8.9 mg/dL (8.5-10.1) Total Bilirubin 0.5 mg/dL (0.2-1.0) Aspartate Amino Transf (AST/SGOT) 17 U/L (15-37) Alanine Aminotransferase (ALT/SGPT) 15 U/L (14-59) Alkaline Phosphatase 62 U/L (46-116) Total Protein 6.4 g/dL (6.4-8.2) Albumin 2.6 g/dL (3.4-5.0) Albumin/Globulin Ratio 0.7 (1.0-1.7) Assessment/Plan Diverticulitis afebrile vital signs stable normal white count advance diet to full liquids Justicifation of Admission Dx: Justifications for Admission: Justification of Admission Dx: N/A BHAVIK DA SILVA MD Aug 13, 2021 09:00
[2021-08-13] MEDS: LACTOBACILLUS RHAMNOSUS GG 1 CAPSULE. PO SCH (09:02)
[2021-08-13] MEDS: CALCIUM CARB/VIT D3 500/200 TABLET. PO SCH (09:02)
[2021-08-13] MEDS: MULTIVITAMIN with MINERAL TABLET. PO SCH (09:02)
[2021-08-13] MEDS: OMEGA-3 FATTY ACIDS/FISH OIL 1,000 MG CAPSULE. PO SCH (09:02)
[2021-08-13] MEDS: CYANOCOBALAMIN (VITAMIN B-12) 1,000 MCG TABLET. PO SCH (09:02)
[2021-08-13] MEDS: FLUoxetine HCL 20 MG CAPSULE PO SCH (09:03)
[2021-08-13] MEDS: LOSARTAN POTASSIUM 50 MG TABLET. PO SCH (09:03)
[2021-08-13] MEDS: LIDOCAINE (700MG/PATCH) PATCH. TD SCH (09:09)
[2021-08-13] MEDS: DICLOFENAC SODIUM 1% TOPICAL GEL 100GM TUBE. TP SCH ×2 (09:10→20:53)
[2021-08-13 09:45] LABS: ALBUMIN 2.9 g/dL (3.4-5.0); ALBUMIN/GLOBULIN RATIO 0.7 (1.0-1.7); CALCIUM 9.2 mg/dL (8.5-10.1); CREATININE 0.7 mg/dL (0.6-1.0); GFR 83.7; TOTAL BILIRUBIN 0.4 mg/dL (0.2-1.0); TOTAL PROTEIN 6.8 g/dL (6.4-8.2)
[2021-08-13] MEDS ORDERED: POTASSIUM BICARB 20 MEQ EFFERVESCENT TABLET. PO ONE ×2 (10:54→11:00)
[2021-08-13 10:58] VITALS: BP 128/84
[2021-08-13] MEDS: traMADol 50 MG TABLET PO PRN ×2 (11:49→20:54)
[2021-08-13] MEDS ORDERED: IOHEXOL 300 MG/ML 100ML VIAL. IV ONE (12:00)
[2021-08-13] MEDS ORDERED: CONTRAST GIVEN. MC PRN (12:00)
--- NOTE | 2021-08-13 12:02 | NUR ---
SW following. Discussed with RN, pt from home alone, advanced to full liquid diet. RN advised pt is having some pain. RN advised no SW needs at this time. SW will continue to follow.
[2021-08-13 15:00] VITALS: BP 151/77
--- NOTE | 2021-08-13 15:51 | RAD ---
EXAMINATION: CT abdomen and pelvis with IV contrast. INDICATION:65 years, Female, worsening abdominal pain, history of perforated sigmoid diverticulitis. TECHNIQUE: Axial CT images of the abdomen and pelvis were obtained. Coronal and sagittal reformatted performed. COMPARISON: CT guided biopsy dated 08/11/2021 . Exposure: One or more of the following individualized dose reduction techniques were utilized for thi s examination: 1. Automated exposure control 2. Adjustment of the mA and/or kV according to patient size 3. Use of iterative reconstruction technique. FINDINGS: LOWER CHEST: There is a 1.4 cm pleural-based nodule in the medial right lower lobe. Subsegmental atelectasis in le ft lung base. ABDOMEN/PELVIS: Colon diverticulosis. Redemonstrated sequelae of acute sigmoid diverticulitis with wall thickening an d large pericolonic fat stranding. No extraluminal gas or peritoneum to suggest perforation at this t iglesia. No loculated fluid collection. No bowel dilatation. Normal size and morphology of the liver with homogeneous enhancement. Subcentimeter hypodensity in th e right hepatic lobe, too small to characterize. Unremarkable gallbladder, biliary ducts, pancreas, s pleen and adrenals. Normal symmetric enhancement of the kidneys with no hydronephrosis or nephrolithi asis. Simple appearing cyst in the interpolar left kidney measures 1.3 cm. There is a 1.0 cm hypodens e lesion with eccentric calcification in the lower pole left kidney (series 3 image 33). Subcentimete r hypodensities in both renal cortices, too small to characterize. Mild aortoiliac atherosclerotic calcifications without dilatation or narrowing. Mesenteric arteries a nd portal vein are patent. No ascites. No lymphadenopathy in the abdomen or pelvis by size criteria. Underdistended urinary bladder which limits evaluation. Retroverted uterus. MUSCULOSKELETAL: No acute osseous process or suspicious lesion. Degenerative changes in the spine and bilateral hips. IMPRESSION: 1. Essentially unchanged sequelae of acute sigmoid diverticulitis without new abscess or findings of perforation at this time. 2. Indeterminate 1.0 cm hypodense lesion with eccentric calcified focus seen in the lower pole left k idney. Differential includes minimally complicated cysts versus less likely solid neoplasm. Recommend ultrasound follow-up in 6 months to ensure stability. 3. A 1.4 cm pleural-based nodule in the medial right lower lobe. Fleischner Society guidelines for management of incidental pulmonary nodule (Radiology 2017): Single solid nodule > 8 mm: LOW-RISK and HIGH-RISK patient: Consider CT, PET/CT, or tissue sampling at 3 months. 4. Other chronic/incidental findings, as described above. Electronically signed by: Pritesh Ca MD (08/13/2021 3:48 PM) [id number]
[2021-08-13] MEDS: cefTRIAXone IV Push 1 GM VIAL. IVP SCH (17:58)
[2021-08-13 19:00] VITALS: BP 130/77
[2021-08-13] MEDS: traZODone 50 MG TABLET. PO SCH (20:54)
[2021-08-13] MEDS: PATCH REMOVAL. MC SCH (20:56)
[2021-08-13 23:00] VITALS: BP 110/68
[2021-08-14 03:14] VITALS: BP 136/75
[2021-08-14 07:00] VITALS: BP 158/82
[2021-08-14] MEDS: PANTOPRAZOLE 40 MG TABLET.DR. PO SCH (07:14)
[2021-08-14] MEDS ORDERED: PANTOPRAZOLE 40 MG TABLET.DR. PO SCH (07:30)
[2021-08-14 07:56] LABS: ALBUMIN 3.1 g/dL (3.4-5.0); ALBUMIN/GLOBULIN RATIO 0.8 (1.0-1.7); CALCIUM 9.8 mg/dL (8.5-10.1); CREATININE 0.8 mg/dL (0.6-1.0); GFR 71.8; POTASSIUM 3.7 mmol/L (3.5-5.1); TOTAL BILIRUBIN 0.3 mg/dL (0.2-1.0); TOTAL PROTEIN 7.2 g/dL (6.4-8.2)
[2021-08-14] MEDS: MULTIVITAMIN with MINERAL TABLET. PO SCH (08:43)
[2021-08-14] MEDS: CALCIUM CARB/VIT D3 500/200 TABLET. PO SCH (08:43)
[2021-08-14] MEDS: LACTOBACILLUS RHAMNOSUS GG 1 CAPSULE. PO SCH (08:43)
[2021-08-14] MEDS: CYANOCOBALAMIN (VITAMIN B-12) 1,000 MCG TABLET. PO SCH (08:43)
[2021-08-14] MEDS: OMEGA-3 FATTY ACIDS/FISH OIL 1,000 MG CAPSULE. PO SCH (08:43)
[2021-08-14] MEDS: LOSARTAN POTASSIUM 50 MG TABLET. PO SCH (08:44)
[2021-08-14] MEDS: FLUoxetine HCL 20 MG CAPSULE PO SCH (08:45)
[2021-08-14] MEDS: LIDOCAINE (700MG/PATCH) PATCH. TD SCH (08:45)
[2021-08-14] MEDS: DICLOFENAC SODIUM 1% TOPICAL GEL 100GM TUBE. TP SCH ×2 (08:45→21:00)
--- NOTE | 2021-08-14 10:04 | PDOC ---
SURGICAL PROGRESS NOTE DATE: 08/14/21 TIME: 10:03 Subjective Pt reports doing well, passing loose stools Vital Signs Vital Signs Date Time Temp Pulse Resp B/P (MAP) Pulse Ox O2 Delivery O2 Flow Rate FiO2 08/14/21 08:44 67 158/82 08/14/21 07:00 97.7 20 96 Room Air 97.7 08/13/21 21:24 2.0 I&O Intake and Output 08/14/21 07:00 Intake Total 1010 ml Output Total 600 ml Balance 410 ml Intake Oral 960 ml IV Total 50 ml Output Urine Total 600 ml # Voids 2 General: Alert, Oriented X3, Cooperative, No acute distress Abdomen: Soft, No tenderness Labs Laboratory Tests Test 08/13/21 09:05 08/14/21 07:10 Sodium Level 139 mmol/L (136-145) 140 mmol/L (136-145) Potassium Level 3.0 mmol/L (3.5-5.1) 3.7 mmol/L (3.5-5.1) Chloride Level 103 mmol/L (98-107) 102 mmol/L (98-107) Carbon Dioxide Level 23 mmol/L (21-32) 29 mmol/L (21-32) Anion Gap 13 (6-14) 9 (6-14) Blood Urea Nitrogen 2 mg/dL (7-20) 2 mg/dL (7-20) Creatinine 0.7 mg/dL (0.6-1.0) 0.8 mg/dL (0.6-1.0) Estimated GFR (Cockcroft-Gault) 83.7 71.8 BUN/Creatinine Ratio 3 (6-20) 3 (6-20) Glucose Level 149 mg/dL (70-99) 94 mg/dL (70-99) Calcium Level 9.2 mg/dL (8.5-10.1) 9.8 mg/dL (8.5-10.1) Total Bilirubin 0.4 mg/dL (0.2-1.0) 0.3 mg/dL (0.2-1.0) Aspartate Amino Transf (AST/SGOT) 23 U/L (15-37) 20 U/L (15-37) Alanine Aminotransferase (ALT/SGPT) 17 U/L (14-59) 16 U/L (14-59) Alkaline Phosphatase 67 U/L (46-116) 74 U/L (46-116) Total Protein 6.8 g/dL (6.4-8.2) 7.2 g/dL (6.4-8.2) Albumin 2.9 g/dL (3.4-5.0) 3.1 g/dL (3.4-5.0) Albumin/Globulin Ratio 0.7 (1.0-1.7) 0.8 (1.0-1.7) Laboratory Tests Test 08/14/21 07:10 Sodium Level 140 mmol/L (136-145) Potassium Level 3.7 mmol/L (3.5-5.1) Chloride Level 102 mmol/L (98-107) Carbon Dioxide Level 29 mmol/L (21-32) Anion Gap 9 (6-14) Blood Urea Nitrogen 2 mg/dL (7-20) Creatinine 0.8 mg/dL (0.6-1.0) Estimated GFR (Cockcroft-Gault) 71.8 BUN/Creatinine Ratio 3 (6-20) Glucose Level 94 mg/dL (70-99) Calcium Level 9.8 mg/dL (8.5-10.1) Total Bilirubin 0.3 mg/dL (0.2-1.0) Aspartate Amino Transf (AST/SGOT) 20 U/L (15-37) Alanine Aminotransferase (ALT/SGPT) 16 U/L (14-59) Alkaline Phosphatase 74 U/L (46-116) Total Protein 7.2 g/dL (6.4-8.2) Albumin 3.1 g/dL (3.4-5.0) Albumin/Globulin Ratio 0.8 (1.0-1.7) Problem List diverticulitis improving cont abx and supportive care, no surgical plans currently Justicifation of Admission Dx: Justifications for Admission: Justification of Admission Dx: N/A EMI LEVI MD Aug 14, 2021 10:04
[2021-08-14 11:03] VITALS: BP 107/59
[2021-08-14 15:06] VITALS: BP 101/65
[2021-08-14] MEDS: cefTRIAXone IV Push 1 GM VIAL. IVP SCH (17:42)
--- NOTE | 2021-08-14 18:53 | PDOC ---
GENERAL General: Patient examined chart reviewed today is hospital day 5 for this patient with acute sigmoid diverticulitis. She lives closer to [place] but all of the hospitals were completely full when she was evaluated for this in the [facility] emergency department. She sees a primary care doc at [facility]. She is still having significant pain in her left lower quadrant but really wants to try to discharge as soon as she can. She is also incidentally been found to have a pulmonary nodule and a left renal lesion that needs follow-up in primary care. We will continue Zosyn until her discharge and then discharge her home on Augmentin with close outpatient follow-up. We will advance her diet overnight and reassess tomorrow. Time spent today is 30 minutes with greater than 50% in counseling and coordination of care most of which in discussion with patient. Problems: (1) Sigmoid diverticulitis (2) Pulmonary nodule (3) Renal lesion VITAL SIGNS Vital Signs/I&O: Vital Signs Date Time Temp Pulse Resp B/P (MAP) Pulse Ox O2 Delivery O2 Flow Rate FiO2 08/14/21 15:06 98.0 68 20 101/65 (77) 97 Room Air 98.0 08/13/21 21:24 2.0 I & O 08/13/21 08/13/21 08/14/21 15:00 23:00 07:00 Intake Total 530 ml 240 ml 240 ml Output Total 600 ml Balance 530 ml -360 ml 240 ml In general the patient is pleasant alert and oriented x3 no acute distress HEENT exam is unremarkable Chest is clear to auscultation Heart S1-S2 normal regular rate and rhythm no murmurs or gallops are noted Abdomen bowel sounds are present though diminished tender in her left lower quadrant no masses organomegaly noted Extremity exam is unremarkable for acute abnormality ALLERGIES Allergies: Allergies Coded Allergies Type Severity Reaction Last Updated Verified Sulfa (Sulfonamide Antibiotics) Allergy Intermediate 08/10/21 Yes MEDS Medications: Current Medications Medications (Trade) Dose Ordered Sig/Vince Start Time Stop Time Status Last Admin Dose Admin Acetaminophen (Tylenol) 650 mg PRN Q6HRS PRN 08/12/21 12:45 08/13/21 06:11 Amlodipine Besylate (Norvasc) 10 mg DAILY 08/12/21 14:00 08/14/21 08:44 Calcium Carbonate/ Glycine (Tums) 500 mg PRN Q3HRS PRN 08/11/21 20:00 Calcium/Vitamin D (Oscal D 500mg/ 200uts) 1 tab DAILY 08/12/21 14:00 08/14/21 08:43 Ceftriaxone Sodium (Rocephin) 1 gm Q24H 08/13/21 18:00 08/14/21 18:21 DC 08/14/21 17:42 Cyanocobalamin (Vitamin B-12) 1,000 mcg DAILY 08/12/21 14:00 08/14/21 08:43 Diclofenac Sodium (Voltaren) 1 vianey BID 08/12/21 13:00 08/14/21 08:45 Diphenhydramine HCl (Benadryl) 25 mg PRN QHS PRN 08/11/21 20:15 08/13/21 00:06 Famotidine (Pepcid Vial) 20 mg PRN BID PRN 08/11/21 20:00 08/13/21 12:39 DC 08/12/21 09:20 Famotidine (Pepcid) 20 mg PRN BID PRN 08/11/21 20:00 08/12/21 19:38 Fentanyl Citrate (Fentanyl 2ml Vial) 100 mcg 1X ONCE 08/11/21 14:00 08/11/21 14:04 DC 08/11/21 14:46 Fish Oil (Fish Oil) 1,000 mg DAILY 08/12/21 14:00 08/14/21 08:43 Fluoxetine HCl (PROzac) 20 mg DAILY 08/12/21 14:00 08/14/21 08:45 Hydralazine HCl (Apresoline Inj) 10 mg PRN Q4HRS PRN 08/11/21 08:45 08/12/21 23:20 Info (CONTRAST GIVEN -- Rx MONITORING) 1 each PRN DAILY PRN 08/13/21 12:00 08/15/21 11:59 Iohexol (Omnipaque 300 Mg/ml) 75 ml 1X ONCE 08/13/21 12:00 08/13/21 12:01 DC 08/13/21 15:20 Lactobacillus Rhamnosus (Culturelle) 1 cap DAILY 08/12/21 14:00 08/14/21 08:43 Lidocaine (Lidoderm) 1 patch DAILY 08/12/21 13:00 08/13/21 09:09 Lidocaine HCl (Buffered Lidocaine 1%) 3 ml 1X ONCE 08/11/21 14:00 08/11/21 14:04 DC 08/11/21 14:47 Losartan Potassium (Cozaar) 50 mg DAILY 08/12/21 14:00 08/14/21 08:44 Midazolam HCl (Versed) 2 mg 1X ONCE 08/11/21 14:00 08/11/21 14:04 DC 08/11/21 14:46 Miscellaneous (Lidoderm Patch Removal) 1 ea QHS 08/12/21 21:00 08/12/21 21:00 Multivitamins (Thera M Plus) 1 tab DAILY 08/12/21 14:00 08/14/21 08:43 Ondansetron HCl (Zofran) 4 mg PRN Q4HRS PRN 08/11/21 07:15 Pantoprazole Sodium (PROTONIX VIAL for IV PUSH) 40 mg DAILYAC 08/12/21 07:30 08/14/21 06:32 DC 08/13/21 06:01 Pantoprazole Sodium (Protonix) 40 mg DAILYAC 08/14/21 07:30 08/14/21 07:14 Piperacillin Sod/ Tazobactam Sod 3.375 gm/Sodium Chloride 50 ml @ 100 mls/hr Q6HRS 08/15/21 00:00 Potassium Bicarbonate (Potassium Effervescent Tablet) 40 meq 1054 ONCE 08/13/21 10:54 08/13/21 10:57 DC 08/13/21 11:35 Potassium Chloride/Dextrose/ Sod Cl 1,000 ml @ 80 mls/hr [id number] 08/12/21 09:00 08/12/21 21:29 DC 08/12/21 09:32 Potassium Chloride/Water 100 ml @ 100 mls/hr Q1H 08/11/21 14:00 08/11/21 15:59 DC 08/11/21 19:00 Sodium Chloride 1,000 ml @ 80 mls/hr [id number] 08/10/21 22:45 08/12/21 08:02 DC 08/11/21 12:15 Tramadol HCl (Ultram) 50 mg PRN Q6HRS PRN 08/13/21 11:30 08/13/21 20:54 Trazodone HCl (Desyrel) 50 mg HS 08/12/21 21:00 08/13/21 20:54 Zolpidem Tartrate (Ambien) 5 mg PRN QHS PRN 08/11/21 20:00 Current Medications Medications (Trade) Dose Ordered Sig/Vince Route PRN Reason Start Time Stop Time Status Last Admin Dose Admin Pantoprazole Sodium (Protonix) 40 mg DAILYAC PO 08/14/21 07:30 08/14/21 07:14 LAB Lab: Laboratory Tests Test 08/14/21 07:10 Sodium Level 140 mmol/L (136-145) Potassium Level 3.7 mmol/L (3.5-5.1) Chloride Level 102 mmol/L (98-107) Carbon Dioxide Level 29 mmol/L (21-32) Anion Gap 9 (6-14) Blood Urea Nitrogen 2 mg/dL (7-20) L Creatinine 0.8 mg/dL (0.6-1.0) Estimated GFR (Cockcroft-Gault) 71.8 BUN/Creatinine Ratio 3 (6-20) L Glucose Level 94 mg/dL (70-99) Calcium Level 9.8 mg/dL (8.5-10.1) Total Bilirubin 0.3 mg/dL (0.2-1.0) Aspartate Amino Transferase (AST) 20 U/L (15-37) Alanine Aminotransferase (ALT) 16 U/L (14-59) Alkaline Phosphatase 74 U/L (46-116) Total Protein 7.2 g/dL (6.4-8.2) Albumin 3.1 g/dL (3.4-5.0) L Albumin/Globulin Ratio 0.8 (1.0-1.7) L Laboratory Tests 08/14/21 07:10 ASSESSMENT & PLAN A&P Plan as noted above This note was created using [employer] and may have omissions and/or errors 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 Justifications for Admission Other Justification SHILPA MORROW MD Aug 14, 2021 18:53
[2021-08-14 19:00] VITALS: BP 143/85
[2021-08-14] MEDS: traMADol 50 MG TABLET PO PRN (19:53)
[2021-08-14] MEDS: traZODone 50 MG TABLET. PO SCH (20:55)
[2021-08-14] MEDS: CALCIUM CARBONATE 500 MG TAB.CHEW PO PRN (20:55)
[2021-08-14] MEDS: PATCH REMOVAL. MC SCH (21:00)
[2021-08-14 23:06] VITALS: BP 108/66
[2021-08-15] MEDS: PIPERACILLIN/TAZOBACTAM 3.375 GM in IV NORMAL SALINE 50ML 50 ML IV SCH ×5 (00:08→23:44)
[2021-08-15 02:50] VITALS: BP 139/86
[2021-08-15] MEDS: CALCIUM CARBONATE 500 MG TAB.CHEW PO PRN ×4 (04:21→21:31)
[2021-08-15] MEDS: PANTOPRAZOLE 40 MG TABLET.DR. PO SCH (06:14)
[2021-08-15 07:00] VITALS: BP 132/77
[2021-08-15 07:51] LABS: BASO % 1 % (0-3); EOS # 0.2 x10^3/uL (0.0-0.7); EOS % 4 % (0-3); HEMATOCRIT 48.4 % (36.0-47.0); HEMOGLOBIN 16.4 g/dL (12.0-15.5); LYMPH # 1.4 x10^3/uL (1.0-4.8); LYMPH % 31 % (24-48); MEAN CORPUSCULAR HEMOGLOBIN 31 pg (25-35); MEAN CORPUSCULAR HGB CONC 34 g/dL (31-37); MEAN CORPUSCULAR VOLUME 92 fL (79-100); MONO # 0.3 x10^3/uL (0.0-1.1); MONO % 7 % (0-9); NEUT # 2.5 x10^3/uL (1.8-7.7); NEUT % 57 % (31-73); PLATELET COUNT 480 x10^3/uL (140-400); RED BLOOD COUNT 5.28 x10^6/uL (3.50-5.40); RED CELL DISTRIBUTION WIDTH 14.3 % (11.5-14.5); WHITE BLOOD COUNT 4.4 x10^3/uL (4.0-11.0)
[2021-08-15 08:03] LABS: ALBUMIN 2.9 g/dL (3.4-5.0); ALBUMIN/GLOBULIN RATIO 0.7 (1.0-1.7); CALCIUM 9.5 mg/dL (8.5-10.1); CREATININE 0.8 mg/dL (0.6-1.0); GFR 71.8; POTASSIUM 3.8 mmol/L (3.5-5.1); TOTAL BILIRUBIN 0.2 mg/dL (0.2-1.0); TOTAL PROTEIN 6.9 g/dL (6.4-8.2)
[2021-08-15] MEDS: CYANOCOBALAMIN (VITAMIN B-12) 1,000 MCG TABLET. PO SCH (08:39)
[2021-08-15] MEDS: FLUoxetine HCL 20 MG CAPSULE PO SCH (08:39)
[2021-08-15] MEDS: CALCIUM CARB/VIT D3 500/200 TABLET. PO SCH (08:39)
[2021-08-15] MEDS: OMEGA-3 FATTY ACIDS/FISH OIL 1,000 MG CAPSULE. PO SCH (08:40)
[2021-08-15] MEDS: LOSARTAN POTASSIUM 50 MG TABLET. PO SCH (08:40)
[2021-08-15] MEDS: MULTIVITAMIN with MINERAL TABLET. PO SCH (08:40)
[2021-08-15] MEDS: LIDOCAINE (700MG/PATCH) PATCH. TD SCH (08:40)
[2021-08-15] MEDS: LACTOBACILLUS RHAMNOSUS GG 1 CAPSULE. PO SCH (08:40)
[2021-08-15] MEDS: DICLOFENAC SODIUM 1% TOPICAL GEL 100GM TUBE. TP SCH ×2 (08:42→21:33)
--- NOTE | 2021-08-15 09:28 | PDOC ---
PROGRESS NOTES Date of Service: DATE: 08/15/21 TIME: 09:28 Chief Complaint Chief Complaint A/P: Perforated diverticulitis - IV zosyn, general surgery, IR consulted, IV pain control. f/u cultures Intractable abdominal pain - due to perforated diverticulitis. IV fentanyl. Consult general surgery Abdominal abscess - IR consulted for drain. Zosyn q6 hrs Smoker - counseled on cessation HTN - cont home meds. 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 Pain started 2 weeks prior to presentation pain has been colicky comes and goes but her symptoms changed on 08/10/2021 is having a sharp pain with a bowel movement with 10 out of 10 in her right lower quadrant. She is felt more bloated and distended since then. She has had loose bowel movements. She also has had night sweats and subjective fevers has not checked her temperature. Denies chest pain and shortness of breath. Blood pressure on initial presentation 173/92 temp 98.4 F pulse 70 respirations 16/min SPO2 95% on room air initial labs NA 136, K3.8, BUN 7, CR 0.7, glucose 113, LFTs within normal laboratory results, WBC 11, Hb 16.5, platelets 373, urinalysis negative for nitrates negative for leukocyte esterase a COVID-19 PCR returned negative lactic acid 1.3 CT abdomen pelvis was performed in radiology read showed acute sigmoid diverticulitis with small pericolonic abscess no evidence of bowel perforation. An indeterminate 1.4 x 0.9 cm right lower lobe pulmonary nodule. 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 The ED contacted multiple hospitals [facility] had no beds available and was transferred to [facility] for further care. 08/11: To IR for abscess drainage with 3 cc of purulent material removed and no need for placement of a drain after. 08/12: Afebrile overnight. Potassium still low at 3.4 despite replacement. Her suprapubic and right lower quadrant pain are much improved but she still has left upper quadrant pain she thinks may be more related to her ribs. Will try Lidoderm patch and topical Voltaren. Diet was advanced Afebrile overnight. Preliminary Gram stain with GNR and GPC, K3. Suprapubic and right lower quadrant pain improved Lidoderm topical Voltaren not improving left upper quadrant lower rib pain. Tolerating clears well. plan: F/u cultures Repeat CT follow K, hold HCTZ Vitals Vitals Vital Signs Date Time Temp Pulse Resp B/P (MAP) Pulse Ox O2 Delivery O2 Flow Rate FiO2 08/15/21 08:40 68 132/77 08/15/21 07:00 98.1 16 97 Room Air 98.1 08/14/21 20:23 2.0 Physical Exam General: Alert, Oriented X3, Cooperative, No acute distress Heart: Regular rate, No murmurs Abdomen: Soft, No tenderness Extremities: No edema Skin: No significant lesion Labs LABS Laboratory Tests Test 08/15/21 06:50 White Blood Count 4.4 x10^3/uL (4.0-11.0) Red Blood Count 5.28 x10^6/uL (3.50-5.40) Hemoglobin 16.4 g/dL (12.0-15.5) Hematocrit 48.4 % (36.0-47.0) Mean Corpuscular Volume 92 fL (79-100) Mean Corpuscular Hemoglobin 31 pg (25-35) Mean Corpuscular Hemoglobin Concent 34 g/dL (31-37) Red Cell Distribution Width 14.3 % (11.5-14.5) Platelet Count 480 x10^3/uL (140-400) Neutrophils (%) (Auto) 57 % (31-73) Lymphocytes (%) (Auto) 31 % (24-48) Monocytes (%) (Auto) 7 % (0-9) Eosinophils (%) (Auto) 4 % (0-3) Basophils (%) (Auto) 1 % (0-3) Neutrophils # (Auto) 2.5 x10^3/uL (1.8-7.7) Lymphocytes # (Auto) 1.4 x10^3/uL (1.0-4.8) Monocytes # (Auto) 0.3 x10^3/uL (0.0-1.1) Eosinophils # (Auto) 0.2 x10^3/uL (0.0-0.7) Basophils # (Auto) 0.0 x10^3/uL (0.0-0.2) Sodium Level 140 mmol/L (136-145) Potassium Level 3.8 mmol/L (3.5-5.1) Chloride Level 103 mmol/L (98-107) Carbon Dioxide Level 30 mmol/L (21-32) Anion Gap 7 (6-14) Blood Urea Nitrogen 2 mg/dL (7-20) Creatinine 0.8 mg/dL (0.6-1.0) Estimated GFR (Cockcroft-Gault) 71.8 BUN/Creatinine Ratio 3 (6-20) Glucose Level 83 mg/dL (70-99) Calcium Level 9.5 mg/dL (8.5-10.1) Total Bilirubin 0.2 mg/dL (0.2-1.0) Aspartate Amino Transf (AST/SGOT) 22 U/L (15-37) Alanine Aminotransferase (ALT/SGPT) 19 U/L (14-59) Alkaline Phosphatase 69 U/L (46-116) Total Protein 6.9 g/dL (6.4-8.2) Albumin 2.9 g/dL (3.4-5.0) Albumin/Globulin Ratio 0.7 (1.0-1.7) Comment Review of Relevant I have reviewed the following items mann (where applicable) has been applied. Labs Laboratory Tests Test 08/14/21 07:10 08/15/21 06:50 Sodium Level 140 mmol/L (136-145) 140 mmol/L (136-145) Potassium Level 3.7 mmol/L (3.5-5.1) 3.8 mmol/L (3.5-5.1) Chloride Level 102 mmol/L (98-107) 103 mmol/L (98-107) Carbon Dioxide Level 29 mmol/L (21-32) 30 mmol/L (21-32) Anion Gap 9 (6-14) 7 (6-14) Blood Urea Nitrogen 2 mg/dL (7-20) 2 mg/dL (7-20) Creatinine 0.8 mg/dL (0.6-1.0) 0.8 mg/dL (0.6-1.0) Estimated GFR (Cockcroft-Gault) 71.8 71.8 BUN/Creatinine Ratio 3 (6-20) 3 (6-20) Glucose Level 94 mg/dL (70-99) 83 mg/dL (70-99) Calcium Level 9.8 mg/dL (8.5-10.1) 9.5 mg/dL (8.5-10.1) Total Bilirubin 0.3 mg/dL (0.2-1.0) 0.2 mg/dL (0.2-1.0) Aspartate Amino Transf (AST/SGOT) 20 U/L (15-37) 22 U/L (15-37) Alanine Aminotransferase (ALT/SGPT) 16 U/L (14-59) 19 U/L (14-59) Alkaline Phosphatase 74 U/L (46-116) 69 U/L (46-116) Total Protein 7.2 g/dL (6.4-8.2) 6.9 g/dL (6.4-8.2) Albumin 3.1 g/dL (3.4-5.0) 2.9 g/dL (3.4-5.0) Albumin/Globulin Ratio 0.8 (1.0-1.7) 0.7 (1.0-1.7) White Blood Count 4.4 x10^3/uL (4.0-11.0) Red Blood Count 5.28 x10^6/uL (3.50-5.40) Hemoglobin 16.4 g/dL (12.0-15.5) Hematocrit 48.4 % (36.0-47.0) Mean Corpuscular Volume 92 fL (79-100) Mean Corpuscular Hemoglobin 31 pg (25-35) Mean Corpuscular Hemoglobin Concent 34 g/dL (31-37) Red Cell Distribution Width 14.3 % (11.5-14.5) Platelet Count 480 x10^3/uL (140-400) Neutrophils (%) (Auto) 57 % (31-73) Lymphocytes (%) (Auto) 31 % (24-48) Monocytes (%) (Auto) 7 % (0-9) Eosinophils (%) (Auto) 4 % (0-3) Basophils (%) (Auto) 1 % (0-3) Neutrophils # (Auto) 2.5 x10^3/uL (1.8-7.7) Lymphocytes # (Auto) 1.4 x10^3/uL (1.0-4.8) Monocytes # (Auto) 0.3 x10^3/uL (0.0-1.1) Eosinophils # (Auto) 0.2 x10^3/uL (0.0-0.7) Basophils # (Auto) 0.0 x10^3/uL (0.0-0.2) Laboratory Tests Test 08/15/21 06:50 White Blood Count 4.4 x10^3/uL (4.0-11.0) Red Blood Count 5.28 x10^6/uL (3.50-5.40) Hemoglobin 16.4 g/dL (12.0-15.5) Hematocrit 48.4 % (36.0-47.0) Mean Corpuscular Volume 92 fL (79-100) Mean Corpuscular Hemoglobin 31 pg (25-35) Mean Corpuscular Hemoglobin Concent 34 g/dL (31-37) Red Cell Distribution Width 14.3 % (11.5-14.5) Platelet Count 480 x10^3/uL (140-400) Neutrophils (%) (Auto) 57 % (31-73) Lymphocytes (%) (Auto) 31 % (24-48) Monocytes (%) (Auto) 7 % (0-9) Eosinophils (%) (Auto) 4 % (0-3) Basophils (%) (Auto) 1 % (0-3) Neutrophils # (Auto) 2.5 x10^3/uL (1.8-7.7) Lymphocytes # (Auto) 1.4 x10^3/uL (1.0-4.8) Monocytes # (Auto) 0.3 x10^3/uL (0.0-1.1) Eosinophils # (Auto) 0.2 x10^3/uL (0.0-0.7) Basophils # (Auto) 0.0 x10^3/uL (0.0-0.2) Sodium Level 140 mmol/L (136-145) Potassium Level 3.8 mmol/L (3.5-5.1) Chloride Level 103 mmol/L (98-107) Carbon Dioxide Level 30 mmol/L (21-32) Anion Gap 7 (6-14) Blood Urea Nitrogen 2 mg/dL (7-20) Creatinine 0.8 mg/dL (0.6-1.0) Estimated GFR (Cockcroft-Gault) 71.8 BUN/Creatinine Ratio 3 (6-20) Glucose Level 83 mg/dL (70-99) Calcium Level 9.5 mg/dL (8.5-10.1) Total Bilirubin 0.2 mg/dL (0.2-1.0) Aspartate Amino Transf (AST/SGOT) 22 U/L (15-37) Alanine Aminotransferase (ALT/SGPT) 19 U/L (14-59) Alkaline Phosphatase 69 U/L (46-116) Total Protein 6.9 g/dL (6.4-8.2) Albumin 2.9 g/dL (3.4-5.0) Albumin/Globulin Ratio 0.7 (1.0-1.7) Microbiology 08/11/21 Gram Stain - Final, Resulted 08/11/21 Aerobic and Anaerobic Culture - Preliminary, Resulted 08/11/21 Antimicrobic Susceptibility - Preliminary, Resulted Medications Current Medications Fentanyl Citrate (Fentanyl 2ml Vial) 50 mcg PRN Q3HRS PRN IVP SEVERE PAIN 7-10 Last administered on 08/12/21at 00:27; Start 08/10/21 at 22:45 Piperacillin Sod/ Tazobactam Sod 3.375 gm/Sodium Chloride 50 ml @ 100 mls/hr Q6HRS IV Last administered on 08/13/21at 11:36; Start 08/11/21 at 00:00; Stop 08/13/21 at 15:36; Status DC Sodium Chloride 1,000 ml @ 80 mls/hr [id number] IV Last administered on 08/11/21at 12:15; Start 08/10/21 at 22:45; Stop 08/12/21 at 08:02; Status DC Ondansetron HCl (Zofran) 4 mg PRN Q4HRS PRN IVP NAUSEA/VOMITING; Start 08/11/21 at 07:15 Hydralazine HCl (Apresoline Inj) 10 mg PRN Q4HRS PRN IVP ELEVATED BP, SEE COMMENTS Last administered on 08/12/21at 23:20; Start 08/11/21 at 08:45 Lidocaine HCl (Buffered Lidocaine 1%) 3 ml STK-MED ONCE .ROUTE ; Start 08/11/21 at 13:41; Stop 08/11/21 at 13:41; Status DC Midazolam HCl (Versed) 2 mg STK-MED ONCE .ROUTE ; Start 08/11/21 at 13:52; Stop 08/11/21 at 13:53; Status DC Fentanyl Citrate (Fentanyl 2ml Vial) 100 mcg STK-MED ONCE .ROUTE ; Start 08/11/21 at 13:53; Stop 08/11/21 at 13:53; Status DC Lidocaine HCl (Buffered Lidocaine 1%) 3 ml 1X ONCE IJ Last administered on 08/11/21at 14:47; Start 08/11/21 at 14:00; Stop 08/11/21 at 14:04; Status DC Midazolam HCl (Versed) 2 mg 1X ONCE IV Last administered on 08/11/21at 14:46; Start 08/11/21 at 14:00; Stop 08/11/21 at 14:04; Status DC Fentanyl Citrate (Fentanyl 2ml Vial) 100 mcg 1X ONCE IV Last administered on 08/11/21at 14:46; Start 08/11/21 at 14:00; Stop 08/11/21 at 14:04; Status DC Potassium Chloride/Water 100 ml @ 100 mls/hr Q1H IV Last administered on 08/11/21at 19:00; Start 08/11/21 at 14:00; Stop 08/11/21 at 15:59; Status DC Iohexol (Omnipaque 300 Mg/ml) 100 ml STK-MED ONCE .ROUTE ; Start 08/11/21 at 14:27; Stop 08/11/21 at 14:27; Status DC Iohexol (Omnipaque 300 Mg/ml) 100 ml 1X ONCE IJ Last administered on 08/11/21at 14:55; Start 08/11/21 at 15:00; Stop 08/11/21 at 15:01; Status DC Info (CONTRAST GIVEN -- Rx MONITORING) 1 each PRN DAILY PRN MC SEE COMMENTS; Start 08/11/21 at 15:00; Stop 08/13/21 at 14:59; Status Cancel Calcium Carbonate/ Glycine (Tums) 500 mg PRN Q3HRS PRN PO INDIGESTION Last admi nistered on 08/15/21at 04:21; Start 08/11/21 at 20:00 Famotidine (Pepcid) 20 mg PRN BID PRN PO HEARTBURN / GAS Last administered on 08/12/21at 19:38; Start 08/11/21 at 20:00 Zolpidem Tartrate (Ambien) 5 mg PRN QHS PRN PO INSOMNIA; Start 08/11/21 at 20:00 Pantoprazole Sodium (PROTONIX VIAL for IV PUSH) 40 mg DAILYAC IVP Last administered on 08/13/21at 06:01; Start 08/12/21 at 07:30; Stop 08/14/21 at 06:32; Status DC Famotidine (Pepcid Vial) 20 mg PRN BID PRN IVP HEARTBURN / GAS Last administered on 08/12/21at 09:20; Start 08/11/21 at 20:00; Stop 08/13/21 at 12:39; Status DC Diphenhydramine HCl (Benadryl) 25 mg PRN QHS PRN IVP INSOMNIA Last administered on 08/13/21at 00:06; Start 08/11/21 at 20:15 Potassium Chloride/Dextrose/ Sod Cl 1,000 ml @ 80 mls/hr [id number] IV Last administered on 08/12/21at 09:32; Start 08/12/21 at 09:00; Stop 08/12/21 at 21:29; Status DC Acetaminophen (Tylenol) 650 mg PRN Q6HRS PRN PO MILD PAIN / TEMP > 100.3'F Last administered on 08/13/21at 06:11; Start 08/12/21 at 12:45 Lidocaine (Lidoderm) 1 patch DAILY TD Last administered on 08/13/21at 09:09; Start 08/12/21 at 13:00 Miscellaneous (Lidoderm Patch Removal) 1 ea QHS MC Last administered on 08/12/21at 21:00; Start 08/12/21 at 21:00 Diclofenac Sodium (Voltaren) 1 vianey BID TP Last administered on 08/15/21 08:42; Start 08/12/21 at 13:00 Amlodipine Besylate (Norvasc) 10 mg DAILY PO Last administered on 08/15/21 08:40; Start 08/12/21 at 14:00 Fluoxetine HCl (PROzac) 20 mg DAILY PO Last administered on 08/15/21 08:39; Start 08/12/21 at 14:00 Losartan Potassium (Cozaar) 50 mg DAILY PO Last administered on 08/15/21 08:40; Start 08/12/21 at 14:00 Fish Oil (Fish Oil) 1,000 mg DAILY PO Last administered on 08/15/21 08:40; Start 08/12/21 at 14:00 Trazodone HCl (Desyrel) 50 mg HS PO Last administered on 08/14/21at 20:55; Start 08/12/21 at 21:00 Calcium/Vitamin D (Oscal D 500mg/ 200uts) 1 tab DAILY PO Last administered on 08/15/21 08:39; Start 08/12/21 at 14:00 Lactobacillus Rhamnosus (Culturelle) 1 cap DAILY PO Last administered on 08:40; Start 08/12/21 at 14:00 Cyanocobalamin (Vitamin B-12) 1,000 mcg DAILY PO Last administered on 08/15/21 08:39; Start 08/12/21 at 14:00 Multivitamins (Thera M Plus) 1 tab DAILY PO Last administered on 08/15/21at 08:40; Start 08/12/21 at 14:00 Potassium Bicarbonate (Potassium Effervescent Tablet) 40 meq 1X ONCE PO Last administered on 08/13/21at 11:35; Start 08/13/21 at 11:00; Stop 08/13/21 at 11:01; Status DC Potassium Bicarbonate (Potassium Effervescent Tablet) 40 meq 1054 ONCE PO Last administered on 08/13/21at 11:35; Start 08/13/21 at 10:54; Stop 08/13/21 at 10:57; Status DC Tramadol HCl (Ultram) 50 mg PRN Q6HRS PRN PO MODERATE - SEVERE PAIN Last administered on 08/14/21at 19:53; Start 08/13/21 at 11:30 Iohexol (Omnipaque 300 Mg/ml) 75 ml 1X ONCE IV Last administered on 08/13/21at 15:20; Start 08/13/21 at 12:00; Stop 08/13/21 at 12:01; Status DC Info (CONTRAST GIVEN -- Rx MONITORING) 1 each PRN DAILY PRN MC SEE COMMENTS; Start 08/13/21 at 12:00; Stop 08/15/21 at 11:59 Ceftriaxone Sodium (Rocephin) 1 gm Q24H IVP Last administered on 08/14/21at 17:42; Start 08/13/21 at 18:00; Stop 08/14/21 at 18:21; Status DC Pantoprazole Sodium (Protonix) 40 mg DAILYAC PO ; Start 08/14/21 at 07:30; Stop 08/14/21 at 06:37; Status DC Pantoprazole Sodium (Protonix) 40 mg DAILYAC PO Last administered on 08/15/21at 06:14; Start 08/14/21 at 07:30 Piperacillin Sod/ Tazobactam Sod 3.375 gm/Sodium Chloride 50 ml @ 100 mls/hr Q6HRS IV Last administered on 08/15/21at 06:13; Start 08/15/21 at 00:00 Active Scripts Active Reported Fish Oil 1,000 Mg Capsule (Bim-3 Fatty Acids/Fish Oil) 1 Each Capsule 1 Each P O DAILY B12 Active (Mecobalamin) 1,000 Mcg Tab.chew 1,000 Mcg PO DAILY Probiotic (Lactobacillus Combo No.10) 1 Each Capsule 1 Each PO DAILY Caltrate 600+D Plus Tablet (Ca/D3/Mag#11/Zinc/Silo Erector/Melecio/Bor) 1 Each Tablet 1 Each PO DAILY One-Daily Multi-Vitamin (Multivitamin) 1 Each Tablet 1 Each PO DAILY Trazodone Hcl 50 Mg Tablet 50 Mg PO HS Cozaar (Losartan Potassium) 50 Mg Tablet 50 Mg PO DAILY Hydrochlorothiazide Tablet (Hydrochlorothiazide) 25 Mg Tablet 12.5 Mg PO DAILY Fluoxetine Hcl 20 Mg Capsule 20 Mg PO DAILY Amlodipine Besylate 10 Mg Tablet 10 Mg PO DAILY Vitals/I & O Vital Sign - Last 24 Hours 08/14/21 08/14/21 08/14/21 08/14/21 11:03 15:06 19:00 19:53 Temp 98.0 98.0 98.0 98.0 Pulse 71 68 71 Resp 20 20 20 20 B/P (MAP) 107/59 (75) 101/65 (77) 143/85 (104) Pulse Ox 98 97 95 97 O2 Delivery Room Air Room Air Room Air Room Air O2 Flow Rate 2.0 08/14/21 08/14/21 08/14/21 08/15/21 20:00 20:23 23:06 02:50 Temp 98.4 97.6 98.4 97.6 Pulse 66 67 Resp 18 18 16 B/P (MAP) 108/66 (80) 139/86 (103) Pulse Ox 95 94 95 O2 Delivery Room Air Room Air Room Air Room Air O2 Flow Rate 2.0 08/15/21 08/15/21 08/15/21 07:00 08:40 08:40 Temp 98.1 98.1 Pulse 68 68 68 Resp 16 B/P (MAP) 132/77 (95) 132/77 132/77 Pulse Ox 97 O2 Delivery Room Air Intake and Output 08/14/21 08/14/21 08/15/21 15:00 23:00 07:00 Intake Total 200 ml 200 ml Output Total 550 ml Balance -350 ml 200 ml Justicifation of Admission Dx: Justifications for Admission: Justification of Admission Dx: N/A BHAVIK TREVIÑO MD Aug 15, 2021 09:28
--- NOTE | 2021-08-15 10:24 | PDOC ---
SURGICAL PROGRESS NOTE DATE: 08/15/21 TIME: 10:23 Subjective Pt in shower during rounds d/w nursing, appears to be doing well still with loose stools, c diff pending cont supportive care. Vital Signs Vital Signs Date Time Temp Pulse Resp B/P (MAP) Pulse Ox O2 Delivery O2 Flow Rate FiO2 08/15/21 08:40 68 132/77 08/15/21 07:00 98.1 16 97 Room Air 98.1 08/14/21 20:23 2.0 I&O Intake and Output 08/15/21 07:00 Intake Total 400 ml Output Total 550 ml Balance -150 ml Intake Oral 400 ml Output Urine Total 550 ml # Voids 2 Labs Laboratory Tests Test 08/14/21 07:10 08/15/21 06:50 Sodium Level 140 mmol/L (136-145) 140 mmol/L (136-145) Potassium Level 3.7 mmol/L (3.5-5.1) 3.8 mmol/L (3.5-5.1) Chloride Level 102 mmol/L (98-107) 103 mmol/L (98-107) Carbon Dioxide Level 29 mmol/L (21-32) 30 mmol/L (21-32) Anion Gap 9 (6-14) 7 (6-14) Blood Urea Nitrogen 2 mg/dL (7-20) 2 mg/dL (7-20) Creatinine 0.8 mg/dL (0.6-1.0) 0.8 mg/dL (0.6-1.0) Estimated GFR (Cockcroft-Gault) 71.8 71.8 BUN/Creatinine Ratio 3 (6-20) 3 (6-20) Glucose Level 94 mg/dL (70-99) 83 mg/dL (70-99) Calcium Level 9.8 mg/dL (8.5-10.1) 9.5 mg/dL (8.5-10.1) Total Bilirubin 0.3 mg/dL (0.2-1.0) 0.2 mg/dL (0.2-1.0) Aspartate Amino Transf (AST/SGOT) 20 U/L (15-37) 22 U/L (15-37) Alanine Aminotransferase (ALT/SGPT) 16 U/L (14-59) 19 U/L (14-59) Alkaline Phosphatase 74 U/L (46-116) 69 U/L (46-116) Total Protein 7.2 g/dL (6.4-8.2) 6.9 g/dL (6.4-8.2) Albumin 3.1 g/dL (3.4-5.0) 2.9 g/dL (3.4-5.0) Albumin/Globulin Ratio 0.8 (1.0-1.7) 0.7 (1.0-1.7) White Blood Count 4.4 x10^3/uL (4.0-11.0) Red Blood Count 5.28 x10^6/uL (3.50-5.40) Hemoglobin 16.4 g/dL (12.0-15.5) Hematocrit 48.4 % (36.0-47.0) Mean Corpuscular Volume 92 fL (79-100) Mean Corpuscular Hemoglobin 31 pg (25-35) Mean Corpuscular Hemoglobin Concent 34 g/dL (31-37) Red Cell Distribution Width 14.3 % (11.5-14.5) Platelet Count 480 x10^3/uL (140-400) Neutrophils (%) (Auto) 57 % (31-73) Lymphocytes (%) (Auto) 31 % (24-48) Monocytes (%) (Auto) 7 % (0-9) Eosinophils (%) (Auto) 4 % (0-3) Basophils (%) (Auto) 1 % (0-3) Neutrophils # (Auto) 2.5 x10^3/uL (1.8-7.7) Lymphocytes # (Auto) 1.4 x10^3/uL (1.0-4.8) Monocytes # (Auto) 0.3 x10^3/uL (0.0-1.1) Eosinophils # (Auto) 0.2 x10^3/uL (0.0-0.7) Basophils # (Auto) 0.0 x10^3/uL (0.0-0.2) Laboratory Tests Test 08/15/21 06:50 White Blood Count 4.4 x10^3/uL (4.0-11.0) Red Blood Count 5.28 x10^6/uL (3.50-5.40) Hemoglobin 16.4 g/dL (12.0-15.5) Hematocrit 48.4 % (36.0-47.0) Mean Corpuscular Volume 92 fL (79-100) Mean Corpuscular Hemoglobin 31 pg (25-35) Mean Corpuscular Hemoglobin Concent 34 g/dL (31-37) Red Cell Distribution Width 14.3 % (11.5-14.5) Platelet Count 480 x10^3/uL (140-400) Neutrophils (%) (Auto) 57 % (31-73) Lymphocytes (%) (Auto) 31 % (24-48) Monocytes (%) (Auto) 7 % (0-9) Eosinophils (%) (Auto) 4 % (0-3) Basophils (%) (Auto) 1 % (0-3) Neutrophils # (Auto) 2.5 x10^3/uL (1.8-7.7) Lymphocytes # (Auto) 1.4 x10^3/uL (1.0-4.8) Monocytes # (Auto) 0.3 x10^3/uL (0.0-1.1) Eosinophils # (Auto) 0.2 x10^3/uL (0.0-0.7) Basophils # (Auto) 0.0 x10^3/uL (0.0-0.2) Sodium Level 140 mmol/L (136-145) Potassium Level 3.8 mmol/L (3.5-5.1) Chloride Level 103 mmol/L (98-107) Carbon Dioxide Level 30 mmol/L (21-32) Anion Gap 7 (6-14) Blood Urea Nitrogen 2 mg/dL (7-20) Creatinine 0.8 mg/dL (0.6-1.0) Estimated GFR (Cockcroft-Gault) 71.8 BUN/Creatinine Ratio 3 (6-20) Glucose Level 83 mg/dL (70-99) Calcium Level 9.5 mg/dL (8.5-10.1) Total Bilirubin 0.2 mg/dL (0.2-1.0) Aspartate Amino Transf (AST/SGOT) 22 U/L (15-37) Alanine Aminotransferase (ALT/SGPT) 19 U/L (14-59) Alkaline Phosphatase 69 U/L (46-116) Total Protein 6.9 g/dL (6.4-8.2) Albumin 2.9 g/dL (3.4-5.0) Albumin/Globulin Ratio 0.7 (1.0-1.7) Justicifation of Admission Dx: Justifications for Admission: Justification of Admission Dx: N/A EMI LEVI MD Aug 15, 2021 10:24
[2021-08-15 11:00] VITALS: BP 112/72
[2021-08-15] MEDS: traMADol 50 MG TABLET PO PRN ×2 (12:47→18:41)
[2021-08-15] MEDS ORDERED: POLYVINYL ALCOHOL 1.4% OPHTH SOLUTION 15ML BOTTLE. OU PRN (13:45)
[2021-08-15] MEDS: VANCOMYCIN 125 MG/2.5 ML ORAL SOLUTION. PO SCH ×2 (14:31→18:29)
[2021-08-15 15:00] VITALS: BP 111/67
--- NOTE | 2021-08-15 15:00 | PDOC2 ---
CONSULT Date of Consult Date of Consult DATE: 08/15/21 TIME: 14:51 Reason for Consult Reason for Consult: Diverticulitis, new onset diarrhea with positive C. difficile toxin History of Present Illness Reason for Visit: This is a 65-year-old female who was admitted 5 days ago with her first episode of diverticulitis. She had left left-sided abdominal pain and was found to have a small associated abscess that responded well to interventional radiology drainage. Since that time she has been on IV antibiotics including Zosyn and was improving until she complained of some diarrhea and had a stool study done today which revealed positive C. difficile toxin a. She denies any history of C. difficile although she did have exposure to a family member who had C. difficile many years ago. She does describe occasional food or alcohol related diarrhea episodes in the past but did not have persistent diarrhea that might suggest an infection. She is also never had documented diverticulitis before. She does describe a colonoscopy [address] [facility] where she had a polyp removed but was not told about diverticuli or she does not remember being told. She has had some limited antibiotics exposure this past year for a ear infection and for urinary infection but did not develop diarrhea with any of those antibiotic exposures. She also had cataract surgery a week and a half ago but did not have antibiotics at that time. Past Medical History Cardiovascular: HTN Psych: Anxiety, Depression Past Surgical History Past Surgical History: Cataract Removal Social History 1 pack per day ALCOHOL: social Drugs: Marijuana Current Medications Current Medications Current Medications Fentanyl Citrate (Fentanyl 2ml Vial) 50 mcg PRN Q3HRS PRN IVP SEVERE PAIN 7-10 Last administered on 08/12/21at 00:27; Start 08/10/21 at 22:45 Piperacillin Sod/ Tazobactam Sod 3.375 gm/Sodium Chloride 50 ml @ 100 mls/hr Q6HRS IV Last administered on 08/13/21at 11:36; Start 08/11/21 at 00:00; Stop 08/13/21 at 15:36; Status DC Sodium Chloride 1,000 ml @ 80 mls/hr [id number] IV Last administered on 08/11/21at 12:15; Start 08/10/21 at 22:45; Stop 08/12/21 at 08:02; Status DC Ondansetron HCl (Zofran) 4 mg PRN Q4HRS PRN IVP NAUSEA/VOMITING Last a dministered on 08/15/21at 12:46; Start 08/11/21 at 07:15 Hydralazine HCl (Apresoline Inj) 10 mg PRN Q4HRS PRN IVP ELEVATED BP, SEE COMMENTS Last administered on 08/12/21at 23:20; Start 08/11/21 at 08:45 Lidocaine HCl (Buffered Lidocaine 1%) 3 ml STK-MED ONCE .ROUTE ; Start 08/11/21 at 13:41; Stop 08/11/21 at 13:41; Status DC Midazolam HCl (Versed) 2 mg STK-MED ONCE .ROUTE ; Start 08/11/21 at 13:52; Stop 08/11/21 at 13:53; Status DC Fentanyl Citrate (Fentanyl 2ml Vial) 100 mcg STK-MED ONCE .ROUTE ; Start at 13:53; Stop 08/11/21 at 13:53; Status DC Lidocaine HCl (Buffered Lidocaine 1%) 3 ml 1X ONCE IJ Last administered on 08/11/21at 14:47; Start 08/11/21 at 14:00; Stop 08/11/21 at 14:04; Status DC Midazolam HCl (Versed) 2 mg 1X ONCE IV Last administered on 08/11/21at 14:46; Start 08/11/21 at 14:00; Stop 08/11/21 at 14:04; Status DC Fentanyl Citrate (Fentanyl 2ml Vial) 100 mcg 1X ONCE IV Last administered on 08/11/21at 14:46; Start 08/11/21 at 14:00; Stop 08/11/21 at 14:04; Status DC Potassium Chloride/Water 100 ml @ 100 mls/hr Q1H IV Last administered on 08/11/21at 19:00; Start 08/11/21 at 14:00; Stop 08/11/21 at 15:59; Status DC Iohexol (Omnipaque 300 Mg/ml) 100 ml STK-MED ONCE .ROUTE ; Start 08/11/21 at 14:27; Stop 08/11/21 at 14:27; Status DC Iohexol (Omnipaque 300 Mg/ml) 100 ml 1X ONCE IJ Last administered on 08/11/21at 14:55; Start 08/11/21 at 15:00; Stop 08/11/21 at 15:01; Status DC Info (CONTRAST GIVEN -- Rx MONITORING) 1 each PRN DAILY PRN MC SEE COMMENTS; Start 08/11/21 at 15:00; Stop 08/13/21 at 14:59; Status Cancel Calcium Carbonate/ Glycine (Tums) 500 mg PRN Q3HRS PRN PO INDIGESTION Last administered on 08/15/21at 12:50; Start 08/11/21 at 20:00 Famotidine (Pepcid) 20 mg PRN BID PRN PO HEARTBURN / GAS Last administered on 08/12/21at 19:38; Start 08/11/21 at 20:00 Zolpidem Tartrate (Ambien) 5 mg PRN QHS PRN PO INSOMNIA; Start 08/11/21 at 20:00 Pantoprazole Sodium (PROTONIX VIAL for IV PUSH) 40 mg DAILYAC IVP Last administered on 08/13/21at 06:01; Start 08/12/21 at 07:30; Stop 08/14/21 at 06:32; Status DC Famotidine (Pepcid Vial) 20 mg PRN BID PRN IVP HEARTBURN / GAS Last administered on 08/12/21at 09:20; Start 08/11/21 at 20:00; Stop 08/13/21 at 12:39; Status DC Diphenhydramine HCl (Benadryl) 25 mg PRN QHS PRN IVP INSOMNIA Last administered on 08/13/21at 00:06; Start 08/11/21 at 20:15 Potassium Chloride/Dextrose/ Sod Cl 1,000 ml @ 80 mls/hr [id number] IV Last administered on 08/12/21at 09:32; Start 08/12/21 at 09:00; Stop 08/12/21 at 21:29; Status DC Acetaminophen (Tylenol) 650 mg PRN Q6HRS PRN PO MILD PAIN / TEMP > 100.3'F Last administered on 08/13/21at 06:11; Start 08/12/21 at 12:45 Lidocaine (Lidoderm) 1 patch DAILY TD Last administered on 08/13/21at 09:09; Start 08/12/21 at 13:00 Miscellaneous (Lidoderm Patch Removal) 1 ea QHS MC Last administered on 08/12/21at 21:00; Start 08/12/21 at 21:00 Diclofenac Sodium (Voltaren) 1 vianey BID TP Last administered on 08/15/21 08:42; Start 08/12/21 at 13:00 Amlodipine Besylate (Norvasc) 10 mg DAILY PO Last administered on 08/15/21 08:40; Start 08/12/21 at 14:00 Fluoxetine HCl (PROzac) 20 mg DAILY PO Last administered on 08/15/21 08:39; Start 08/12/21 at 14:00 Losartan Potassium (Cozaar) 50 mg DAILY PO Last administered on 08/15/21 08:40; Start 08/12/21 at 14:00 Fish Oil (Fish Oil) 1,000 mg DAILY PO Last administered on 08/15/21 08:40; Start 08/12/21 at 14:00 Trazodone HCl (Desyrel) 50 mg HS PO Last administered on 08/14/21at 20:55; Start 08/12/21 at 21:00 Calcium/Vitamin D (Oscal D 500mg/ 200uts) 1 tab DAILY PO Last administered on 08/15/21at 08:39; Start 08/12/21 at 14:00 Lactobacillus Rhamnosus (Culturelle) 1 cap DAILY PO Last administered on 08/15/21 08:40; Start 08/12/21 at 14:00 Cyanocobalamin (Vitamin B-12) 1,000 mcg DAILY PO Last administered on 08/15/21 08:39; Start 08/12/21 at 14:00 Multivitamins (Thera M Plus) 1 tab DAILY PO Last administered on 08/15/21at 08:40; Start 08/12/21 at 14:00 Potassium Bicarbonate (Potassium Effervescent Tablet) 40 meq 1X ONCE PO Last administered on 08/13/21at 11:35; Start 08/13/21 at 11:00; Stop 08/13/21 at 11:01; Status DC Potassium Bicarbonate (Potassium Effervescent Tablet) 40 meq 1054 ONCE PO Last administered on 08/13/21at 11:35; Start 08/13/21 at 10:54; Stop 08/13/21 at 10:57; Status DC Tramadol HCl (Ultram) 50 mg PRN Q6HRS PRN PO MODERATE - SEVERE PAIN Last administered on 9/19/21at 12:47; Start 08/13/21 at 11:30 Iohexol (Omnipaque 300 Mg/ml) 75 ml 1X ONCE IV Last administered on 08/13/21at 15:20; Start 08/13/21 at 12:00; Stop 08/13/21 at 12:01; Status DC Info (CONTRAST GIVEN -- Rx MONITORING) 1 each PRN DAILY PRN MC SEE COMMENTS; Start 08/13/21 at 12:00; Stop 08/15/21 at 11:59; Status DC Ceftriaxone Sodium (Rocephin) 1 gm Q24H IVP Last administered on 08/14/21at 17:42; Start 08/13/21 at 18:00; Stop 08/14/21 at 18:21; Status DC Pantoprazole Sodium (Protonix) 40 mg DAILYAC PO ; Start 08/14/21 at 07:30; Stop 08/14/21 at 06:37; Status DC Pantoprazole Sodium (Protonix) 40 mg DAILYAC PO Last administered on 08/15/21at 06:14; Start 08/14/21 at 07:30 Piperacillin Sod/ Tazobactam Sod 3.375 gm/Sodium Chloride 50 ml @ 100 mls/hr Q6HRS IV Last administered on 08/15/21at 12:49; Start 08/15/21 at 00:00 Vancomycin HCl (Vancomycin Oral Solution) 125 mg Q6HRS PO Last administered on 08/15/21at 14:31; Start 08/15/21 at 14:00 Glycerin/ Hypromellose/ Polyethylene (Artificial Tears) 1 drop PRN Q15MIN PRN OU DRY EYE Last administered on 08/15/21at 14:31; Start 08/15/21 at 13:45 Active Scripts Active Reported Fish Oil 1,000 Mg Capsule ([place]-3 Fatty Acids/Fish Oil) 1 Each Capsule 1 Each PO DAILY B12 Active (Mecobalamin) 1,000 Mcg Tab.chew 1,000 Mcg PO DAILY Probiotic (Lactobacillus Combo No.10) 1 Each Capsule 1 Each PO DAILY Caltrate 600+D Plus Tablet (Ca/D3/Mag#11/Zinc/On Air Announcer/Melecio/Bor) 1 Each Tablet 1 Each PO DAILY One-Daily Multi-Vitamin (Multivitamin) 1 Each Tablet 1 Each PO DAILY Trazodone Hcl 50 Mg Tablet 50 Mg PO HS Cozaar (Losartan Potassium) 50 Mg Tablet 50 Mg PO DAILY Hydrochlorothiazide Tablet (Hydrochlorothiazide) 25 Mg Tablet 12.5 Mg PO DAILY Fluoxetine Hcl 20 Mg Capsule 20 Mg PO DAILY Amlodipine Besylate 10 Mg Tablet 10 Mg PO DAILY Allergies Allergies: Coded Allergies: Sulfa (Sulfonamide Antibiotics) (Verified Allergy, Intermediate, 08/10/21) Physical Exam General: Alert, Oriented X3 HEENT: Atraumatic, PERRLA Lungs: Clear to auscultation Heart: Regular rate, Normal S1, Normal S2 Abdomen: Normal bowel sounds, Soft, No hepatosplenomegaly, Other (Mild left lower quadrant tenderness) Neuro: Normal speech Psych/Mental Status: Mental status NL Vitals VITALS Vital Signs Date Time Temp Pulse Resp B/P (MAP) Pulse Ox O2 Delivery O2 Flow Rate FiO2 08/15/21 13:17 18 93 Room Air 08/15/21 11:00 98.5 78 112/72 (85) 98.5 08/14/21 20:23 2.0 Labs Labs Laboratory Tests Test 08/13/21 19:45 08/14/21 07:10 08/15/21 06:50 Clostridium difficile Toxin (PCR) Positive (NEGATIVE) Sodium Level 140 mmol/L (136-145) 140 mmol/L (136-145) Potassium Level 3.7 mmol/L (3.5-5.1) 3.8 mmol/L (3.5-5.1) Chloride Level 102 mmol/L (98-107) 103 mmol/L (98-107) Carbon Dioxide Level 29 mmol/L (21-32) 30 mmol/L (21-32) Anion Gap 9 (6-14) 7 (6-14) Blood Urea Nitrogen 2 mg/dL (7-20) 2 mg/dL (7-20) Creatinine 0.8 mg/dL (0.6-1.0) 0.8 mg/dL (0.6-1.0) Estimated GFR (Cockcroft-Gault) 71.8 71.8 BUN/Creatinine Ratio 3 (6-20) 3 (6-20) Glucose Level 94 mg/dL (70-99) 83 mg/dL (70-99) Calcium Level 9.8 mg/dL (8.5-10.1) 9.5 mg/dL (8.5-10.1) Total Bilirubin 0.3 mg/dL (0.2-1.0) 0.2 mg/dL (0.2-1.0) Aspartate Amino Transf (AST/SGOT) 20 U/L (15-37) 22 U/L (15-37) Alanine Aminotransferase (ALT/SGPT) 16 U/L (14-59) 19 U/L (14-59) Alkaline Phosphatase 74 U/L (46-116) 69 U/L (46-116) Total Protein 7.2 g/dL (6.4-8.2) 6.9 g/dL (6.4-8.2) Albumin 3.1 g/dL (3.4-5.0) 2.9 g/dL (3.4-5.0) Albumin/Globulin Ratio 0.8 (1.0-1.7) 0.7 (1.0-1.7) White Blood Count 4.4 x10^3/uL (4.0-11.0) Red Blood Count 5.28 x10^6/uL (3.50-5.40) Hemoglobin 16.4 g/dL (12.0-15.5) Hematocrit 48.4 % (36.0-47.0) Mean Corpuscular Volume 92 fL (79-100) Mean Corpuscular Hemoglobin 31 pg (25-35) Mean Corpuscular Hemoglobin Concent 34 g/dL (31-37) Red Cell Distribution Width 14.3 % (11.5-14.5) Platelet Count 480 x10^3/uL (140-400) Neutrophils (%) (Auto) 57 % (31-73) Lymphocytes (%) (Auto) 31 % (24-48) Monocytes (%) (Auto) 7 % (0-9) Eosinophils (%) (Auto) 4 % (0-3) Basophils (%) (Auto) 1 % (0-3) Neutrophils # (Auto) 2.5 x10^3/uL (1.8-7.7) Lymphocytes # (Auto) 1.4 x10^3/uL (1.0-4.8) Monocytes # (Auto) 0.3 x10^3/uL (0.0-1.1) Eosinophils # (Auto) 0.2 x10^3/uL (0.0-0.7) Basophils # (Auto) 0.0 x10^3/uL (0.0-0.2) Laboratory Tests Test 08/15/21 06:50 White Blood Count 4.4 x10^3/uL (4.0-11.0) Red Blood Count 5.28 x10^6/uL (3.50-5.40) Hemoglobin 16.4 g/dL (12.0-15.5) Hematocrit 48.4 % (36.0-47.0) Mean Corpuscular Volume 92 fL (79-100) Mean Corpuscular Hemoglobin 31 pg (25-35) Mean Corpuscular Hemoglobin Concent 34 g/dL (31-37) Red Cell Distribution Width 14.3 % (11.5-14.5) Platelet Count 480 x10^3/uL (140-400) Neutrophils (%) (Auto) 57 % (31-73) Lymphocytes (%) (Auto) 31 % (24-48) Monocytes (%) (Auto) 7 % (0-9) Eosinophils (%) (Auto) 4 % (0-3) Basophils (%) (Auto) 1 % (0-3) Neutrophils # (Auto) 2.5 x10^3/uL (1.8-7.7) Lymphocytes # (Auto) 1.4 x10^3/uL (1.0-4.8) Monocytes # (Auto) 0.3 x10^3/uL (0.0-1.1) Eosinophils # (Auto) 0.2 x10^3/uL (0.0-0.7) Basophils # (Auto) 0.0 x10^3/uL (0.0-0.2) Sodium Level 140 mmol/L (136-145) Potassium Level 3.8 mmol/L (3.5-5.1) Chloride Level 103 mmol/L (98-107) Carbon Dioxide Level 30 mmol/L (21-32) Anion Gap 7 (6-14) Blood Urea Nitrogen 2 mg/dL (7-20) Creatinine 0.8 mg/dL (0.6-1.0) Estimated GFR (Cockcroft-Gault) 71.8 BUN/Creatinine Ratio 3 (6-20) Glucose Level 83 mg/dL (70-99) Calcium Level 9.5 mg/dL (8.5-10.1) Total Bilirubin 0.2 mg/dL (0.2-1.0) Aspartate Amino Transf (AST/SGOT) 22 U/L (15-37) Alanine Aminotransferase (ALT/SGPT) 19 U/L (14-59) Alkaline Phosphatase 69 U/L (46-116) Total Protein 6.9 g/dL (6.4-8.2) Albumin 2.9 g/dL (3.4-5.0) Albumin/Globulin Ratio 0.7 (1.0-1.7) Images Images CT- after IR drainage ABDOMEN/PELVIS: Colon diverticulosis. Redemonstrated sequelae of acute sigmoid diverticulitis with wall thickening and large pericolonic fat stranding. No extraluminal gas or peritoneum to suggest perforation at this time. No loculated fluid collection. No bowel dilatation. Normal size and morphology of the liver with homogeneous enhancement. Subcentimeter hypodensity in the right hepatic lobe, too small to characterize. Unremarkable gallbladder, biliary ducts, pancreas, spleen and adrenals. Normal symmetric enhancement of the kidneys with no hydronephrosis or nephrolithiasis. Simple appearing cyst in the interpolar left kidney measures 1.3 cm. There is a 1.0 cm hypodense lesion with eccentric calcification in the lower pole left kidney (series 3 image 33). Subcentimeter hypodensities in both renal cortices, too small to characterize. Mild aortoiliac atherosclerotic calcifications without dilatation or narrowing. Mesenteric arteries and portal vein are patent. No ascites. No lymphadenopathy in the abdomen or pelvis by size criteria. Underdistended urinary bladder which limits evaluation. Retroverted uterus. MUSCULOSKELETAL: No acute osseous process or suspicious lesion. Degenerative changes in the spine and bilateral hips. IMPRESSION: 1. Essentially unchanged sequelae of acute sigmoid diverticulitis without new abscess or findings of perforation at this time. 2. Indeterminate 1.0 cm hypodense lesion with eccentric calcified focus seen in the lower pole left kidney. Differential includes minimally complicated cysts versus less likely solid neoplasm. Recommend ultrasound follow-up in 6 months to ensure stability. 3. A 1.4 cm pleural-based nodule in the medial right lower lobe. Fleischner Society guidelines for management of incidental pulmonary nodule (Radiology 2017): Single solid nodule > 8 mm: LOW-RISK and HIGH-RISK patient: Consider CT, PET/CT, or tissue sampling at 3 months. 4. Other chronic/incidental findings, as described above. Assessment/Plan Assessment/Plan New onset diverticulitis with localized abscess responding to interventional radiology drainage and antibiotics. Apparently she is not had documented diverticulitis before. New onset diarrhea with stool that shows C. difficile toxin a positive. Although she has had an exposure to a family member with C. difficile many years ago she has not been exposed recently. Also in the outpatient setting she has had some exposure to antibiotics in the past year but is not developed persistent diarrhea. She does give a history of intermittent diarrhea that is self-limited and usually related to diet or alcohol ingestion. Plan: Agree with oral vancomycin which should continue for at least a week after all antibiotics are discontinued for treatment of diverticulitis. Continue with probiotics She asked about whether she can pass the C. difficile on and I encouraged her about good hygiene, avoiding contact with her stool etc. Once home she should check in with her primary care physician to make sure that her symptoms are resolving. If not, repeat stool studies and other treatment options should be considered since there is a likelihood of refractory treatment of C. difficile in some patients. ORION HURST MD Aug 15, 2021 15:00
[2021-08-15 19:00] VITALS: BP 123/66
[2021-08-15] MEDS: PATCH REMOVAL. MC SCH (21:00)
[2021-08-15] MEDS: traZODone 50 MG TABLET. PO SCH (21:31)
[2021-08-15 22:42] VITALS: BP 131/73
[2021-08-16] MEDS: VANCOMYCIN 125 MG/2.5 ML ORAL SOLUTION. PO SCH ×4 (00:18→17:51)
[2021-08-16] MEDS: DICLOFENAC SODIUM 1% TOPICAL GEL 100GM TUBE. TP SCH ×2 (01:33→21:04)
[2021-08-16 03:00] VITALS: BP 135/69
[2021-08-16] MEDS: PIPERACILLIN/TAZOBACTAM 3.375 GM in IV NORMAL SALINE 50ML 50 ML IV SCH ×3 (05:28→17:51)
[2021-08-16 07:00] VITALS: BP 124/69
[2021-08-16] MEDS: CYANOCOBALAMIN (VITAMIN B-12) 1,000 MCG TABLET. PO SCH (08:37)
[2021-08-16] MEDS: LACTOBACILLUS RHAMNOSUS GG 1 CAPSULE. PO SCH (08:37)
[2021-08-16] MEDS: CALCIUM CARB/VIT D3 500/200 TABLET. PO SCH (08:37)
[2021-08-16] MEDS: OMEGA-3 FATTY ACIDS/FISH OIL 1,000 MG CAPSULE. PO SCH (08:38)
[2021-08-16] MEDS: FLUoxetine HCL 20 MG CAPSULE PO SCH (08:38)
[2021-08-16] MEDS: MULTIVITAMIN with MINERAL TABLET. PO SCH (08:38)
[2021-08-16] MEDS: LOSARTAN POTASSIUM 50 MG TABLET. PO SCH (08:38)
[2021-08-16] MEDS: PANTOPRAZOLE 40 MG TABLET.DR. PO SCH (08:39)
[2021-08-16] MEDS: LIDOCAINE (700MG/PATCH) PATCH. TD SCH (08:40)
--- NOTE | 2021-08-16 11:13 | NUR ---
Pt arrived via bed with transportation from room 578. Oriented to room. C/O pain 12/06. Denied any needs. Water pitcher filled. VSS. Call light within reach.
[2021-08-16 11:15] VITALS: BP 134/84
--- NOTE | 2021-08-16 11:16 | PDOC ---
Date of Service: DATE: 08/16/21 TIME: 11:10 Subjective: Subjective: Called the outpt facility where she had colonoscopy - says results could be faxed here. Diarrhea each time she urinates - none overnight. No abd pain this morning but had some last night. Wants to go home. Tolerating diet. Objective: Objective: D/w nurse - no plans for DC she's aware of, it transferring to another floor. Vital Signs: Vital Signs Date Time Temp Pulse Resp B/P (MAP) Pulse Ox O2 Delivery O2 Flow Rate FiO2 08/16/21 08:38 74 124/69 08/16/21 07:59 Room Air 08/16/21 07:00 98.8 18 95 98.8 08/15/21 19:11 2.0 PE: GEN: NAD LUNGS: CTAB HEART: RRR ABD: S/ND/NT NEURO/PSYCH: A & O 3 A/P: Diverticulitis s/p IR aspiration C Diff CRC screen - UTD COVID negative -- Continue atbx for C Diff and diverticulitis. DC per primary/surgery. We will ask for colonoscopy records. Justicifation of Admission Dx: Justifications for Admission: Justification of Admission Dx: N/A CARA HARRIS Aug 16, 2021 11:16
--- NOTE | 2021-08-16 12:09 | NUR ---
SW following. Discussed with RN, pt from home alone, room air, regular diet. Cdiff positive. GI and Surgery following. Pt transferred to room 428. SW will continue to follow.
--- NOTE | 2021-08-16 13:19 | PDOC ---
[employer] PROGRESS NOTE Date of Service DOS: DATE: 08/16/21 TIME: 13:18 Chief Complaint Chief Complaint Perforated diverticulitis Intractable abdominal pain Abdominal abscess Tobacco abuse Hypertension Depression Hypokalemia Malnutrition History of Present Illness History of Present Illness Ms Pal is a 65yo F w/ PMHx HTN who presented to [facility] with labored emergency department complaining of right-sided lower abdominal pain. Pain started 2 weeks prior to presentation pain has been colicky comes and goes but her symptoms changed on 08/10/2021 is having a sharp pain with a bowel movement with 10 out of 10 in her right lower quadrant. She is felt more bloated and distended since then. She has had loose bowel movements. She also has had night sweats and subjective fevers has not checked her temperature. Denies chest pain and shortness of breath. Blood pressure on initial presentation 173/92 temp 98.4 F pulse 70 respirations 16/min SPO2 95% on room air initial labs NA 136, K3.8, BUN 7, CR 0.7, glucose 113, LFTs within normal laboratory results, WBC 11, Hb 16.5, platelets 373, urinalysis negative for nitrates negative for leukocyte esterase a COVID-19 PCR returned negative lactic acid 1.3 CT abdomen pelvis was performed in radiology read showed acute sigmoid diverticulitis with small pericolonic abscess no evidence of bowel perforation. An indeterminate 1.4 x 0.9 cm right lower lobe pulmonary nodule. 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 The ED contacted multiple hospitals [facility] had no beds available and was transferred to [facility] for further care. 08/11: To IR for abscess drainage with 3 cc of purulent material removed and no need for placement of a drain after. 08/12: Afebrile overnight. Potassium still low at 3.4 despite replacement. Her suprapubic and right lower quadrant pain are much improved but she still has left upper quadrant pain she thinks may be more related to her ribs. Will try Lidoderm patch and topical Voltaren. Diet was advanced Afebrile overnight. Preliminary Gram stain with GNR and GPC, K3. Suprapubic and right lower quadrant pain improved Lidoderm topical Voltaren not improving left upper quadrant lower rib pain. Tolerating clears well. plan: F/u cultures Repeat CT follow K, hold HCTZ Vitals/I&O Vitals/I&O: Vital Signs Date Time Temp Pulse Resp B/P (MAP) Pulse Ox O2 Delivery O2 Flow Rate FiO2 08/16/21 11:15 97.8 72 20 134/84 (101) 95 Room Air 97.8 08/15/21 19:11 2.0 I & O 08/15/21 08/15/21 08/16/21 15:00 23:00 07:00 Intake Total 480 ml Balance 480 ml Physical Exam General: Alert, Oriented X3 Heart: Regular rate, Normal S1, Normal S2 Abdomen: Normal bowel sounds, Soft, No hepatosplenomegaly, Other (Mild left lower quadrant tenderness) Extremities: No edema Skin: No significant lesion Assessment and Plan Assessmemt and Plan Perforated diverticulitis Intractable abdominal pain Abdominal abscess Tobacco abuse Hypertension Depression Hypokalemia Malnutrition s/p IR aspiration C Diff CRC screen - UTD COVID negative Plan Advance diet as tolerated As needed pain meds Antibiotics Hope to discharge in a.m. if okay with consultants Home meds DVT prophylaxis Full code Comment Review of Relevant I have reviewed the following items mann (where applicable) has been applied. Medications: Current Medications Medications (Trade) Dose Ordered Sig/Vince Route PRN Reason Start Time Stop Time Status Last Admin Dose Admin Vancomycin HCl (Vancomycin Oral Solution) 125 mg Q6HRS PO 08/15/21 14:00 08/29/21 13:59 08/16/21 12:25 Glycerin/ Hypromellose/ Polyethylene (Artificial Tears) 1 drop PRN Q15MIN PRN OU DRY EYE 08/15/21 13:45 08/15/21 14:31 Justifications for Admission Other Justification DEEPA PUCKETT III DO Aug 16, 2021 13:19
--- NOTE | 2021-08-16 13:24 | PDOC ---
YNEY TEAGUE REVIEW RN 08/16/21 1324: SURGICAL PROGRESS NOTE DATE: 08/16/21 TIME: 13:23 Subjective some mild abdominal discomfort after lunch still loose stools Vital Signs Vital Signs Date Time Temp Pulse Resp B/P (MAP) Pulse Ox O2 Delivery O2 Flow Rate FiO2 08/16/21 11:15 97.8 72 20 134/84 (101) 95 Room Air 97.8 08/15/21 19:11 2.0 I&O Intake and Output 08/16/21 07:00 Intake Total 480 ml Balance 480 ml Intake Oral 480 ml # Voids 1 General: Alert, Oriented X3, Cooperative Abdomen: Soft Labs Laboratory Tests Test 08/15/21 06:50 White Blood Count 4.4 x10^3/uL (4.0-11.0) Red Blood Count 5.28 x10^6/uL (3.50-5.40) Hemoglobin 16.4 g/dL (12.0-15.5) Hematocrit 48.4 % (36.0-47.0) Mean Corpuscular Volume 92 fL (79-100) Mean Corpuscular Hemoglobin 31 pg (25-35) Mean Corpuscular Hemoglobin Concent 34 g/dL (31-37) Red Cell Distribution Width 14.3 % (11.5-14.5) Platelet Count 480 x10^3/uL (140-400) Neutrophils (%) (Auto) 57 % (31-73) Lymphocytes (%) (Auto) 31 % (24-48) Monocytes (%) (Auto) 7 % (0-9) Eosinophils (%) (Auto) 4 % (0-3) Basophils (%) (Auto) 1 % (0-3) Neutrophils # (Auto) 2.5 x10^3/uL (1.8-7.7) Lymphocytes # (Auto) 1.4 x10^3/uL (1.0-4.8) Monocytes # (Auto) 0.3 x10^3/uL (0.0-1.1) Eosinophils # (Auto) 0.2 x10^3/uL (0.0-0.7) Basophils # (Auto) 0.0 x10^3/uL (0.0-0.2) Sodium Level 140 mmol/L (136-145) Potassium Level 3.8 mmol/L (3.5-5.1) Chloride Level 103 mmol/L (98-107) Carbon Dioxide Level 30 mmol/L (21-32) Anion Gap 7 (6-14) Blood Urea Nitrogen 2 mg/dL (7-20) Creatinine 0.8 mg/dL (0.6-1.0) Estimated GFR (Cockcroft-Gault) 71.8 BUN/Creatinine Ratio 3 (6-20) Glucose Level 83 mg/dL (70-99) Calcium Level 9.5 mg/dL (8.5-10.1) Total Bilirubin 0.2 mg/dL (0.2-1.0) Aspartate Amino Transf (AST/SGOT) 22 U/L (15-37) Alanine Aminotransferase (ALT/SGPT) 19 U/L (14-59) Alkaline Phosphatase 69 U/L (46-116) Total Protein 6.9 g/dL (6.4-8.2) Albumin 2.9 g/dL (3.4-5.0) Albumin/Globulin Ratio 0.7 (1.0-1.7) Problem List supportive care c diff treatment no surgical plans Justicifation of Admission Dx: Justifications for Admission: Justification of Admission Dx: N/A BHAVIK DA SILVA MD 08/16/21 185: SURGICAL PROGRESS NOTE Assessment/Plan Agree with Patrick's assessment and plan YENY TEAGUE APRN Aug 16, 2021 13:24 BHAVIK DA SILVA MD Aug 16, 2021 18:52
[2021-08-16] MEDS: CALCIUM CARBONATE 500 MG TAB.CHEW PO PRN ×2 (13:31→17:56)
[2021-08-16 14:42] VITALS: BP 116/68
--- NOTE | 2021-08-16 15:54 | NUR ---
Pt stated she would request colonoscopy records and have them faxed here. Provided her with the fax number.
[2021-08-16] MEDS: traMADol 50 MG TABLET PO PRN (16:56)
[2021-08-16 19:00] VITALS: BP 141/84
[2021-08-16] MEDS: FAMOTIDINE 20 MG TABLET. PO SCH (21:00)
[2021-08-16] MEDS: traZODone 50 MG TABLET. PO SCH (21:00)
[2021-08-16] MEDS: PATCH REMOVAL. MC SCH (21:04)
[2021-08-16 22:58] VITALS: BP 130/77
[2021-08-17] MEDS: PIPERACILLIN/TAZOBACTAM 3.375 GM in IV NORMAL SALINE 50ML 50 ML IV SCH ×2 (00:30→06:31)
[2021-08-17] MEDS: VANCOMYCIN 125 MG/2.5 ML ORAL SOLUTION. PO SCH ×3 (00:30→11:49)
[2021-08-17 02:38] VITALS: BP 133/84
[2021-08-17 07:54] VITALS: BP 140/79
[2021-08-17] MEDS: MULTIVITAMIN with MINERAL TABLET. PO SCH (07:56)
[2021-08-17] MEDS: LIDOCAINE (700MG/PATCH) PATCH. TD SCH (07:56)
[2021-08-17] MEDS: FLUoxetine HCL 20 MG CAPSULE PO SCH (07:57)
[2021-08-17] MEDS: LOSARTAN POTASSIUM 50 MG TABLET. PO SCH (07:57)
[2021-08-17] MEDS: CALCIUM CARB/VIT D3 500/200 TABLET. PO SCH (07:57)
[2021-08-17] MEDS: CYANOCOBALAMIN (VITAMIN B-12) 1,000 MCG TABLET. PO SCH (07:57)
[2021-08-17] MEDS: LACTOBACILLUS RHAMNOSUS GG 1 CAPSULE. PO SCH (07:57)
[2021-08-17] MEDS: FAMOTIDINE 20 MG TABLET. PO SCH (07:57)
[2021-08-17] MEDS: OMEGA-3 FATTY ACIDS/FISH OIL 1,000 MG CAPSULE. PO SCH (07:57)
[2021-08-17] MEDS: ACETAMINOPHEN 325 MG TABLET. PO PRN (07:58)
[2021-08-17] MEDS: DICLOFENAC SODIUM 1% TOPICAL GEL 100GM TUBE. TP SCH (07:58)
--- NOTE | 2021-08-17 09:48 | NUR ---
Report given to CLARICE Bettencourt. Pt in bed, call light within reach.
[2021-08-17] MEDS ORDERED: FAMO20TA5 PO (10:19)
[2021-08-17] MEDS ORDERED: VANC500V PO (10:19)
--- NOTE | 2021-08-17 10:24 | PDOC3 ---
Discharge Summary Visit Information Date of Admission: Aug 10, 2021 Date of Discharge: Aug 17, 2021 Admitting Diagnosis: Diverticulitis Final Diagnosis Same Brief Hospital Course Allergies Allergies Coded Allergies Type Severity Reaction Last Updated Verified Sulfa (Sulfonamide Antibiotics) Allergy Intermediate 08/10/21 Yes Vital Signs Vital Signs Date Time Temp Pulse Resp B/P (MAP) Pulse Ox O2 Delivery O2 Flow Rate FiO2 08/17/21 08:00 Room Air 08/17/21 07:57 65 140/79 08/17/21 07:54 98.0 18 94 98.0 Brief Hospital Course Chief Complaint Perforated diverticulitis Intractable abdominal pain Abdominal abscess Tobacco abuse Hypertension Depression Hypokalemia Malnutrition History of Present Illness History of Present Illness Ms Pal is a 65yo F w/ PMHx HTN who presented to [facility] with labored emergency department complaining of right-sided lower abdominal pain. Pain started 2 weeks prior to presentation pain has been colicky comes and goes but her symptoms changed on 08/10/2021 is having a sharp pain with a bowel movement with 10 out of 10 in her right lower quadrant. She is felt more bloated and distended since then. She has had loose bowel movements. She also has had night sweats and subjective fevers has not checked her temperature. Denies chest pain and shortness of breath. Blood pressure on initial presen tation 173/92 temp 98.4 F pulse 70 respirations 16/min SPO2 95% on room air initial labs NA 136, K3.8, BUN 7, CR 0.7, glucose 113, LFTs within normal laboratory results, WBC 11, Hb 16.5, platelets 373, urinalysis negative for nitrates negative for leukocyte esterase a COVID-19 PCR returned negative lactic acid 1.3 CT abdomen pelvis was performed in radiology read showed acute sigmoid diverticulitis with small pericolonic abscess no evidence of bowel perforation. An indeterminate 1.4 x 0.9 cm right lower lobe pulmonary nodule. 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 The ED contacted multiple hospitals [facility] had no beds available and was transferred to [facility] for further care. 08/11: To IR for abscess drainage with 3 cc of purulent material removed and no need for placement of a drain after. 08/12: Afebrile overnight. Potassium still low at 3.4 despite replacement. Her suprapubic and right lower quadrant pain are much improved but she still has left upper quadrant pain she thinks may be more related to her ribs. Will try Lidoderm patch and topical Voltaren. Diet was advanced Afebrile overnight. Preliminary Gram stain with GNR and GPC, K3. Suprapubic and right lower quadrant pain improved Lidoderm topical Voltaren not improving left upper quadrant lower rib pain. Tolerating clears well. plan: F/u cultures Repeat CT follow K, hold HCTZ 08/17 Patient evaluated at bedside. Doing well today complaining of little bit of abdominal pain and heartburn but says much better than previously has been. Also complaining of the feeling of eye pressure, she underwent cataract surgery not long ago and if any problems her eye doctor told her to call to follow-up. She is due to see her eye doctor this afternoon. Will finish p.o. Vanc at home. Discharge Information Condition at Discharge: Improved Disposition/Orders: D/C to Home Scheduled Amlodipine Besylate (Amlodipine Besylate) 10 Mg Tablet, 10 MG PO DAILY for HTN, (Reported) Entered as Reported by: GIANNA CHAVEZ on 08/11/213 Last Action: Continued on 08/12/211344 by AD MEIER MD Ca/D3/Mag#11/Zinc/Urology Nurse/Melecio/Bor (Caltrate 600+D Plus Tablet) 1 Each Tablet, 1 EACH PO DAILY for SUPPLEMENT, (Reported) Entered as Reported by: GIANNA CHAVEZ on 08/11/213 Last Action: Converted on 08/12/211344 by AD MEIER MD Famotidine (Famotidine) 20 Mg Tablet, 20 MG PO BID for gerd for 60 Days, #120 Prescribed by: AD LIVINGSTON MD on 08/17/21 1019 Fluoxetine Hcl (Fluoxetine Hcl) 20 Mg Capsule, 20 MG PO DAILY for DEPRESSION, (Reported) Entered as Reported by: GIANNA CHAVEZ on 08/11/213 Last Action: Continued on 08/12/211344 by AD MEIER MD Hydrochlorothiazide (Hydrochlorothiazide Tablet ) 25 Mg Tablet, 12.5 MG PO DAILY for DIURETIC, Ref 0 (Reported) Entered as Reported by: GIANNA CHAVEZ on 08/11/213 Last Action: New Order on 08/11/213 by GIANNA CHAVEZ Lactobacillus Combo No.10 (Probiotic) 1 Each Capsule, 1 EACH PO DAILY for SUPPLEMENT, (Reported) Entered as Reported by: GIANNA CHAVEZ on 08/11/213 Last Action: Converted on 08/12/211344 by AD MEIER MD Losartan Potassium (Cozaar ) 50 Mg Tablet, 50 MG PO DAILY for HYPERTENSION, (Reported) Entered as Reported by: GIANNA CHAVEZ on 08/11/213 Last Action: Continued on 08/12/211344 by AD MEIER MD Mecobalamin (B12 Active) 1,000 Mcg Tab.chew, 1,000 MCG PO DAILY for SUPPLEMENT, (Reported) Entered as Reported by: GIANNA CHAVEZ on 08/11/213 Last Action: Converted on 08/12/211344 by AD MEIER MD Multivitamin (One-Daily Multi-Vitamin) 1 Each Tablet, 1 EACH PO DAILY for SUPPLEMENT, (Reported) Entered as Reported by: GIANNA CHAVEZ on 08/11/213 Last Action: Converted on 08/12/211344 by AD MEIER MD Nardin-3 Fatty Acids/Fish Oil (Fish Oil 1,000 Mg Capsule) 1 Each Capsule, 1 EACH PO DAILY for SUPPLEMENT, (Reported) Entered as Reported by: GIANNA CHAVEZ on 08/11/213 Last Action: Continued on 08/12/211344 by AD MEIER MD Trazodone Hcl (Trazodone Hcl) 50 Mg Tablet, 50 MG PO HS for INSOMNIA, (Reported) Entered as Reported by: GIANNA CHAVEZ on 08/11/213 Last Action: Continued on 08/12/211344 by AD MEIER MD Vancomycin Hcl (Vancomycin Hcl) 500 Mg Vial, 125 MG PO Q6HRS for c diff colitis for 21 Days, #21 Prescribed by: AD LIVINGSTON MD on 08/17/21 1019 Justicifation of Admission Dx: Justifications for Admission: Justification of Admission Dx: N/A AD LIVINGSTON MD Aug 17, 2021 10:23
--- NOTE | 2021-08-17 10:43 | PDOC ---
Date of Service: DATE: 08/17/21 TIME: 10:37 Subjective: Subjective: Still has lower abdominal pain - noted w/ movement. No stools overnight, two loose this morning. Concern re: missed eye appt this morning. Not sure if feels well enough to DC or not. Objective: Objective: Reviewed outside records: EGD and colonoscopy 03/[address] Carvajal Brand: normal esophagus, active gastritis (no path received), normal duodenum, 4mm cecal polyp (no path received), normal examined portion of ileum, sigmoid and descending colon diverticulosis. FH of colon polyps listed. Vital Signs: Vital Signs Date Time Temp Pulse Resp B/P (MAP) Pulse Ox O2 Delivery O2 Flow Rate FiO2 08/17/21 08:00 Room Air 08/17/21 07:57 65 140/79 08/17/21 07:54 98.0 18 94 98.0 PE: GEN: NAD - ate 100% of breakfast LUNGS: CTAB HEART: RRR ABD: mild LLQ discomfort, BS+, soft NEURO/PSYCH: A & O 3 A/P: Diverticulitis, C Diff -- Slowly better. Nurse called after I saw re: home antibiotics recommendations - currently on Zosyn + vanco. ID not following. D/w Dr. Figueroa - ?Augmentin + vanco? - check with surgery. Almost due for screening colonoscopy - consider as outpt in ~2 months. DC per primary. Justicifation of Admission Dx: Justifications for Admission: Justification of Admission Dx: N/A CARA HARRIS Aug 17, 2021 10:43
[2021-08-17 11:08] VITALS: BP 165/78
[2021-08-17] MEDS ORDERED: AMOX1TAB61 PO (11:29)
--- NOTE | 2021-08-17 12:06 | NUR ---
Discharge instructions given and prescriptions sent via electronic to pharmacy. Answered questions and concerns. Verbalized understanding. Pt discharged home accompanied by daughter.
== END 2021-08-17 12:06 | disposition home or self-care (01) | DRG 372 ==
LOC: 5 SOUTH 18:55 → 4 NORTH 08-16 11:12
PROVIDERS: ADMIT Family Medicine; ATTEND Family Medicine
PROC: 0W9J3ZZ Drainage of Pelvic Cavity, Percutaneous Approach (ICD-10-PCS; principal; 2021-08-11)
DX: A04.72 Enterocolitis due to Clostridium difficile, not specified as recurrent (principal); K57.20 Diverticulitis of large intestine with perforation and abscess without bleeding; E44.0 Moderate protein-calorie malnutrition; E87.6 Hypokalemia; F17.210 Nicotine dependence, cigarettes, uncomplicated; F32.9 Major depressive disorder, single episode, unspecified; I10 Essential (primary) hypertension; N28.1 Cyst of kidney, acquired; Y93.E1 Activity, personal bathing and showering; Z20.822 Contact with and (suspected) exposure to COVID-19; F41.9 Anxiety disorder, unspecified; Z68.22 Body mass index [BMI] 22.0-22.9, adult; Z79.899 Other long term (current) drug therapy; Z71.6 Tobacco abuse counseling; Z88.2 Allergy status to sulfonamides
CPT/HCPCS: 10009; 36415; 74177; 80053; 83735; 85025; 85610; 87071; 87075; 87076; 87077; 87186; 87493; 99152; C1892; C9113; J0360; J0696; J1200; J2250; J2405; J2543; J3010; J3480; J3490; J7030; Q9967; G0378